=== PATIENT | female | born 1955 | race Caucasian/White ===

== ENCOUNTER → 2019-10-01 | Outpatient (REF) | payer BC ==
[2019-10-01 15:35] LABS: BASO % 0.8 % (0.0-1.0); EOS % 0.4 % (0.0-3.0); HEMATOCRIT 21.3 % (36.0-47.0); LYMPH # 0.9 10^3/uL (1.5-5.0); LYMPH % 36.6 % (24.0-44.0); MEAN CORPUSCULAR HEMOGLOBIN 35.8 pg (27.0-33.0); MEAN CORPUSCULAR HGB CONC 31.9 g/dl (32.0-36.5); MEAN CORPUSCULAR VOLUME 112.1 fl (80.0-96.0); MONO # 0.3 10^3/uL (0.0-0.8); MONO % 10.2 % (0.0-5.0); NEUTROPHILS # 1.3 10^3/uL (1.5-8.5); NEUTROPHILS % 51.6 % (36.0-66.0); PLATELET COUNT, AUTOMATED 217 10^3/uL (150-450); WHITE BLOOD COUNT 2.5 10^3/uL (4.0-10.0)
[2019-10-01 16:00] LABS: HEMOGLOBIN 6.8 g/dl (12.0-15.5)
[2019-10-01 16:04] LABS: ALBUMIN 3.6 GM/DL (3.2-5.2); ALT/SGPT 20 U/L (12-78); BILIRUBIN,TOTAL 0.7 MG/DL (0.2-1.0); BLOOD UREA NITROGEN 35 MG/DL (7-18); CALCIUM LEVEL 8.6 MG/DL (8.8-10.2); CARBON DIOXIDE LEVEL 23 MEQ/L (21-32); CHLORIDE LEVEL 104 MEQ/L (98-107); CREATININE FOR GFR 0.66 MG/DL (0.55-1.30); GLOMERULAR FILTRATION RATE > 60.0 (>45); GLUCOSE, FASTING 113 MG/DL (70-100); PHOSPHORUS LEVEL 4.2 MG/DL (2.5-4.9); POTASSIUM SERUM 4.4 MEQ/L (3.5-5.1); SODIUM LEVEL 138 MEQ/L (136-145); TOTAL PROTEIN 6.2 GM/DL (6.4-8.2); TRIGLYCERIDES LEVEL 45 MG/DL (<150)
== END ==
LOC: M LAB REF 14:31
DX: Z00.00 Encounter for general adult medical examination without abnormal findings (principal)

== ENCOUNTER → 2019-10-08 | Outpatient (REF) | payer BC ==
[2019-10-08 15:39] LABS: BASO % 0.4 % (0.0-1.0); EOS % 1.3 % (0.0-3.0); HEMATOCRIT 26.8 % (36.0-47.0); HEMOGLOBIN 8.8 g/dl (12.0-15.5); LYMPH % 40.4 % (24.0-44.0); MEAN CORPUSCULAR HEMOGLOBIN 35.5 pg (27.0-33.0); MEAN CORPUSCULAR HGB CONC 32.8 g/dl (32.0-36.5); MEAN CORPUSCULAR VOLUME 108.1 fl (80.0-96.0); MONO # 0.2 10^3/uL (0.0-0.8); MONO % 8.3 % (0.0-5.0); NEUTROPHILS # 1.2 10^3/uL (1.5-8.5); NEUTROPHILS % 49.2 % (36.0-66.0); PLATELET COUNT, AUTOMATED 200 10^3/uL (150-450); RED BLOOD COUNT 2.48 10^6/uL (4.00-5.40); WHITE BLOOD COUNT 2.4 10^3/uL (4.0-10.0)
[2019-10-08 15:45] LABS: ALBUMIN 3.7 GM/DL (3.2-5.2); ALT/SGPT 14 U/L (12-78); BILIRUBIN,TOTAL 0.9 MG/DL (0.2-1.0); BLOOD UREA NITROGEN 23 MG/DL (7-18); CALCIUM LEVEL 8.5 MG/DL (8.8-10.2); CARBON DIOXIDE LEVEL 27 MEQ/L (21-32); CHLORIDE LEVEL 106 MEQ/L (98-107); CREATININE FOR GFR 0.71 MG/DL (0.55-1.30); GLOMERULAR FILTRATION RATE > 60.0 (>45); GLUCOSE, FASTING 67 MG/DL (70-100); MAGNESIUM LEVEL 1.9 MG/DL (1.8-2.4); PHOSPHORUS LEVEL 3.7 MG/DL (2.5-4.9); POTASSIUM SERUM 3.8 MEQ/L (3.5-5.1); SODIUM LEVEL 139 MEQ/L (136-145); TOTAL PROTEIN 6.1 GM/DL (6.4-8.2); TRIGLYCERIDES LEVEL 55 MG/DL (<150)
== END ==
LOC: M SHH 15:18
DX: Z00.00 Encounter for general adult medical examination without abnormal findings (principal)

== ENCOUNTER → 2019-10-16 | Outpatient (REF) | payer MEDICARE, OTHER ==
[2019-10-16 15:17] LABS: ALBUMIN 3.6 GM/DL (3.2-5.2); ALT/SGPT 13 U/L (12-78); BILIRUBIN,TOTAL 0.6 MG/DL (0.2-1.0); BLOOD UREA NITROGEN 32 MG/DL (7-18); CALCIUM LEVEL 8.3 MG/DL (8.8-10.2); CARBON DIOXIDE LEVEL 24 MEQ/L (21-32); CHLORIDE LEVEL 108 MEQ/L (98-107); CREATININE FOR GFR 0.63 MG/DL (0.55-1.30); GLOMERULAR FILTRATION RATE > 60.0 (>45); GLUCOSE, FASTING 90 MG/DL (70-100); MAGNESIUM LEVEL 2.1 MG/DL (1.8-2.4); PHOSPHORUS LEVEL 3.5 MG/DL (2.5-4.9); POTASSIUM SERUM 4.2 MEQ/L (3.5-5.1); SODIUM LEVEL 139 MEQ/L (136-145); TOTAL PROTEIN 6.2 GM/DL (6.4-8.2); TRIGLYCERIDES LEVEL 32 MG/DL (<150)
[2019-10-16 15:26] LABS: BASO % 0.9 % (0.0-1.0); EOS % 0.9 % (0.0-3.0); HEMATOCRIT 22.9 % (36.0-47.0); HEMOGLOBIN 7.4 g/dl (12.0-15.5); LYMPH # 1.1 10^3/uL (1.5-5.0); LYMPH % 51.6 % (24.0-44.0); MEAN CORPUSCULAR HEMOGLOBIN 35.2 pg (27.0-33.0); MEAN CORPUSCULAR HGB CONC 32.3 g/dl (32.0-36.5); MONO # 0.2 10^3/uL (0.0-0.8); MONO % 8.3 % (0.0-5.0); NEUTROPHILS % 38.3 % (36.0-66.0); PLATELET COUNT, AUTOMATED 157 10^3/uL (150-450); WHITE BLOOD COUNT 2.2 10^3/uL (4.0-10.0)
[2019-10-16 16:05] LABS: NEUTROPHILS # 0.8 10^3/uL (1.5-8.5)
== END ==
LOC: M SHH 13:53
DX: K22.9 Disease of esophagus, unspecified (principal)

== ENCOUNTER → 2019-10-22 | Outpatient (REF) | payer MEDICARE, OTHER ==
[2019-10-22 14:51] LABS: BASO % 0.5 % (0.0-1.0); EOS % 0.5 % (0.0-3.0); HEMATOCRIT 22.3 % (36.0-47.0); HEMOGLOBIN 7.1 g/dl (12.0-15.5); LYMPH # 0.7 10^3/uL (1.5-5.0); LYMPH % 33.8 % (24.0-44.0); MEAN CORPUSCULAR HGB CONC 31.8 g/dl (32.0-36.5); MEAN CORPUSCULAR VOLUME 109.9 fl (80.0-96.0); MONO # 0.2 10^3/uL (0.0-0.8); NEUTROPHILS # 1.2 10^3/uL (1.5-8.5); NEUTROPHILS % 54.2 % (36.0-66.0); PLATELET COUNT, AUTOMATED 182 10^3/uL (150-450); RED BLOOD COUNT 2.03 10^6/uL (4.00-5.40); WHITE BLOOD COUNT 2.2 10^3/uL (4.0-10.0)
[2019-10-22 15:19] LABS: ALBUMIN 3.5 GM/DL (3.2-5.2); ALT/SGPT 15 U/L (12-78); BILIRUBIN,TOTAL 0.6 MG/DL (0.2-1.0); BLOOD UREA NITROGEN 23 MG/DL (7-18); CALCIUM LEVEL 8.2 MG/DL (8.8-10.2); CARBON DIOXIDE LEVEL 25 MEQ/L (21-32); CHLORIDE LEVEL 104 MEQ/L (98-107); CREATININE FOR GFR 0.62 MG/DL (0.55-1.30); GLOMERULAR FILTRATION RATE > 60.0 (>45); GLUCOSE, FASTING 76 MG/DL (70-100); MAGNESIUM LEVEL 2.2 MG/DL (1.8-2.4); PHOSPHORUS LEVEL 3.4 MG/DL (2.5-4.9); POTASSIUM SERUM 3.6 MEQ/L (3.5-5.1); SODIUM LEVEL 138 MEQ/L (136-145); TOTAL PROTEIN 6.1 GM/DL (6.4-8.2); TRIGLYCERIDES LEVEL 43 MG/DL (<150)
== END ==
LOC: M SHH 13:18
PROVIDERS: ATTEND Family Medicine
DX: E43 Unspecified severe protein-calorie malnutrition (principal); Q39.5 Congenital dilatation of esophagus; K22.0 Achalasia of cardia; Z98.84 Bariatric surgery status

== ENCOUNTER 2020-01-23 21:02 | Inpatient (IN) | payer MEDICARE, OTHER ==
[~2020-01-23] VITALS: Ht 175.3 cm; Wt 83.0 kg
[~2020-01-23 21:02] MED LIST: ALBU83IN INH; BIMA01SOL OS; BRIM0.2S13 OS; CENT1TAB PO; FURO20TA2 PO; LEVO500T3 PO; MUCI1TAB16 PO; PANT40TA3 PO; PROAAER10 INH; PROT1TAB2 PO; PROTPAK PO; SIMB1SUS OS; SYMB16INH INH; TPNINJ3 IV; VITA500C24 PO; VITMTA PO; [UNRECOGNIZED DRUG - OTHER] NEB
[2020-01-23] MEDS ORDERED: PROC20004 IM (21:14)
[2020-01-23] MEDS ORDERED: COMBIVENT RESPIMAT 100-20MCG INHALER 4GM INH ONE (21:45)
[2020-01-23 22:17] LABS: BASO % 0.6 % (0.0-1.0); EOS % 0.6 % (0.0-3.0); LYMPH # 1.5 10^3/uL (1.5-5.0); MEAN CORPUSCULAR HGB CONC 33.7 g/dl (32.0-36.5); MONO # 0.3 10^3/uL (0.0-0.8); MONO % 5.9 % (0.0-5.0); NEUTROPHILS # 3.5 10^3/uL (1.5-8.5); NEUTROPHILS % 65.3 % (36.0-66.0); PLATELET COUNT, AUTOMATED 241 10^3/uL (150-450); WHITE BLOOD COUNT 5.4 10^3/uL (4.0-10.0)
[2020-01-23 22:19] LABS: HEMOGLOBIN 6.4 g/dl (12.0-15.5); MEAN CORPUSCULAR VOLUME 118.8 fl (80.0-96.0)
[2020-01-23 22:23] LABS: ANISOCYTOSIS 2+; POLYCHROMASIA 1+
[2020-01-23 22:24] LABS: POIKILOCYTOSIS 2+
[2020-01-23 22:25] LABS: MICROCYTOSIS 1+
[2020-01-23 22:27] LABS: OVALOCYTES 1+; PLATELET ESTIMATE NORMAL (NORMAL); TEAR DROP CELLS 1+
--- NOTE | 2020-01-23 22:33 | ECGEPIP ---
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
[2020-01-23 22:40] LABS: ALBUMIN 2.7 GM/DL (3.2-5.2); ALT/SGPT 8 U/L (12-78); BILIRUBIN,DIRECT 0.2 MG/DL (0.0-0.2); BILIRUBIN,TOTAL 0.6 MG/DL (0.2-1.0); BLOOD UREA NITROGEN 24 MG/DL (7-18); CARBON DIOXIDE LEVEL 28 MEQ/L (21-32); CHLORIDE LEVEL 103 MEQ/L (98-107); CK-MB VALUE MASS < 1.0 NG/ML (<3.6); CPK CREATINE PHOSPHOKINASE 11 U/L (26-192); CREATININE FOR GFR 0.65 MG/DL (0.55-1.30); GLOMERULAR FILTRATION RATE > 60.0 (>45); GLUCOSE, FASTING 107 MG/DL (70-100); MB/CK RELATIVE INDEX 9.09 (< OR =4); NT-PRO BNP 931 PG/ML (<125); POTASSIUM SERUM 3.9 MEQ/L (3.5-5.1); SODIUM LEVEL 139 MEQ/L (136-145); TOTAL PROTEIN 6.1 GM/DL (6.4-8.2); TROPONIN I < 0.02 NG/ML (< 0.10)
[2020-01-23] MEDS ORDERED: ISOVUE-370 76% 100ML VIAL (Q9967) As Ordered ONE (22:47)
[2020-01-24] VITALS (19 sets, daily range): BP systolic 86–120; BP diastolic 47–65
--- NOTE | 2020-01-24 00:11 | REPVR ---
PROCEDURE INFORMATION: Exam: CT Angiography Chest With Contrast Exam date and time: 01/23/2020 9:38 PM Age: 64 years old Clinical indication: Shortness of breath TECHNIQUE: Imaging protocol: Computed tomographic angiography of the chest with intravenous contrast. 3D rendering: MIP and/or 3D reconstructed images were created by the technologist. Radiation optimization: All CT scans at this facility use at least one of these dose optimization techniques: automated exposure control; mA and/or kV adjustment per patient size (includes targeted exams where dose is matched to clinical indication); or iterative reconstruction. Contrast material: ISO; Contrast volume: 75 ml; Contrast route: AC; COMPARISON: CT CHEST W/ CONTRAST - OUTSIDE PRIOR 09/10/2019 12:00 AM FINDINGS: Pulmonary arteries: Main pulmonary artery is dilated. No pulmonary embolism is seen. Aorta: Unremarkable. No aortic aneurysm. No aortic dissection. Lungs: There are extensive multifocal areas of airspace consolidation throughout both lungs. Mild linear interstitial thickening in both lungs. Multiple calcified granulomata in both lungs. Pleural space: Right greater than left small pleural effusions. Heart: Mild cardiomegaly. No pericardial effusion. Mediastinum: The esophagus is diffusely dilated and predominantly fluid filled. Appearance is not significantly changed from the prior exam. Lymph nodes: Multiple calcified and noncalcified mediastinal lymph nodes, similar to the prior exam. Bones/joints: Unremarkable. No acute fracture. Soft tissues: Unremarkable. IMPRESSION: 1. Extensive bilateral pneumonia. 2. No pulmonary embolism. 3. Right greater than left small pleural effusions. 4. Diffusely dilated, predominantly fluid-filled esophagus, similar to the prior exam. Electronically signed by: Emir Villavicencio On 01/24/2020 00:11:27 AM
[2020-01-24] MEDS ORDERED: NS 1,000 ML IV SCH (01:22)
[2020-01-24] MEDS ORDERED: ACETAMINOPHEN TAB 650MG DOSE (2X325MG) PO PRN (01:30)
[2020-01-24] MEDS ORDERED: MAALOX 30 ML SUSP *UDC PO PRN (01:30)
[2020-01-24] MEDS ORDERED: BRIM0.2S13 OD (01:30)
[2020-01-24] MEDS ORDERED: BLAC1CAP2 PO (01:30)
[2020-01-24] MEDS ORDERED: IPRATROPIUM 0.5MG/ALBUTEROL 2.5MG INH SOL UD 3ML (DUONEB)(J7620) INH PRN (01:30)
[2020-01-24] MEDS ORDERED: C 50TAB PO (01:30)
[2020-01-24] MEDS ORDERED: MOM 30ML SUSPENSION UDC PO PRN (01:30)
[2020-01-24] MEDS ORDERED: VANCOMYCIN HCL 1,000 MG, VIAL MATE ADAPTER 1 EACH in D5W 250 ML IV ONE (01:45)
--- NOTE | 2020-01-24 02:12 | HPEPDOC ---
General Date of Admission Date of Service: Jan 24, 2020 Chief Complaint The patient is a 64-year-old female admitted with a reason for visit of SOB. Source: Patient Exam Limitations: No limitations Timing/Duration: Day(s) (5) Severity: Moderate Associated Symptoms: Cough, Malaise, Shortness of breath, Weakness History of Present Illness 64-year-old female with past medical history of recently diagnosed myelodysplastic syndrome presents with worsening shortness of breath and fatigue over the past 5 days. Patient reports that when symptoms initially started, she was experiencing fatigue after some physical exertion. She also states that she had associated upper respiratory like symptoms. She says that she initially had a productive cough with yellow sputum and increased sinus pressure and pain in her ears. She went to see her doctor for her regular scheduled Procrit shots for the myelodysplastic syndrome. At that time, the shot was not given and patient was prescribed Levaquin to be taken by by mouth for 10 days. However, she continued to feel fatigued and her symptoms of dyspnea on exertion worsened. Given her worsening shortness of breath and generalized malaise, patient decided to come to the ER for further evaluation. Patient reports that her cough has actually improved and she is no longer producing much sputum. She denies any associated fevers, chills, abdominal pain, chest pain. She has some swelling in her lower extremities which she says is chronic. She has been using some nebulizers (Atrovent) at home for her shortness of breath which was minimally helpful. She denies any recent travel history, sick contacts. She states that her has been doing most of the shopping and usually disimpact EDGES and grocery bags when he comes home. Her is not sick at this time. 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 She is independent in all her ADLs and IADLs. She was at her . She is a lifelong nonsmoker, nondrinker, nondrug user. Upon ER evaluation, patient was noted to be hypoxic to 85% and required approximately 4 L via nasal cannula to maintain saturation greater than 92. She was also found to be anemic from her baseline with extensive bilateral pneumonia noted on CT chest. Patient to be admitted for symptomatic anemia, suspected bilateral pneumonia, rule out COVID. Home Medications Scheduled Ascorbic Acid (Vitamin C) 500 Mg Tablet, 500 MG PO DAILY, (Reported) Bimatoprost (Lumigan) 0.01% 2.5ML Drops, 1 DROP OS QHS, (Reported) Brimonidine Tartrate (Brimonidine Tartrate) 0.2% 5ML Drops, 1 DROP OD BID, (Reported) Brinzolamide/Brimonidine Tart (Simbrinza 1%-0.2% Eye Drops) 8 Ml Drops.susp, 1 DROP OS BID, (Reported) Elderberry Fruit and Flower (Black Elderberry 575 mg Cap) 1 Each Capsule, 2 CAP PO DAILY, (Reported) Epoetin Steve (Procrit) 20,000 Unit/1 Ml Vial, 20,000 UNIT IM QWEEK, (Reported) TUESDAY MORNING Multivitamins (Thera M Plus Tablet) 1 Each Tablet, 1 TAB PO DAILY, (Reported) Scheduled PRN Albuterol Sulf (Albuterol Sulfate) 2.5 Mg/3 Ml Vial.neb, 2.5 MG INH Q4H PRN for SHORTNESS OF BREATH, (Reported) Albuterol Sulfate (Proair Hfa) 8.5 Gm Hfa.aer.ad, 2 PUFF INH Q4H PRN for SHORTNESS OF BREATH, (Reported) Furosemide (Furosemide) 20 Mg Tablet, 20 MG PO DAILY PRN for EDEMA, (Reported) Allergies Coded Allergies: Penicillins (Verified Allergy, Intermediate, HIVES, 11/07/19) Sulfa (Sulfonamide Antibiotics) (Verified Allergy, Intermediate, HIVES, 11/07/19) Past Medical History Medical History Myelodysplastic syndrome, chronic lower extremity edema, glaucoma and cataracts, rheumatic fever as child Surgical History Cataract surgery, glaucoma surgery Family History Significant Family History: Cancer, Heart disease Mother of colon cancer Father had CHF, hypertension Social History * Smoker: Denies Alcohol: Denies Drugs: denies Recent Travel/Sick Contacts: Denies: Recent travel, Recent sick contacts Pets in the home: Dog(s) Psychosocial History: No pertinent psych hx Lives with her and is a 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 Independent in all her ADLs and IADLs. A-FIB/CHADSVASC A-FIB History Current/History of A-Fib/PAF?: No Review of Systems Constitutional: Reports: Malaise, Weakness, Fatigue; Denies: Chills, Fever, Night Sweats Eyes: Denies: Pain, Vision change ENT: Reports: Ear Pain, Sinus Congestion; Denies: Head Aches, Dysphagia, Sore Throat Skin: Denies: Rash, Lesions, Jaundice, Bruising Pulmonary: Reports: Dyspnea, Cough (had productive yellow sputum); Denies: Pleuritic Chest Pain Cardiovascular: Reports: Edema, Lt Headedness; Denies: Chest Pain, Palpitations, Orthopnea Gastrointestinal: Denies: Nausea, Vomiting, Abdominal Pain, Diarrhea, Constipation, Melena Genitourinary: Denies: Dysuria, Frequency Hematologic: Denies: Bruising, Bleeding Excessively Musculoskeletal: Denies: Neck Pain, Back Pain, Joint Pain, Muscle Pain Neurological: Denies: Weakness, Numbness, Change in speech, Confusion, Seizures Psych: Reports: Mood Normal Physical Examination General Exam: Positive: Alert, Cooperative, No Acute Distress, Other (pleasant white female, appears to be stated age. Speaking in full sentences and appears to be comfortable on 4 L by nasal cannula.) Eye Exam: Positive: PERRLA, Conjunctiva & lids normal, EOMI; Negative: Sclera icteric ENT Exam: Positive: Atraumatic, Mucous membr. moist/pink; Negative: Pharyngeal Edema Neck Exam: Positive: Supple, +2 carotid pulse wo bruit; Negative: JVD, thyromegaly, Lymphadenopathy Chest Exam: Positive: Clear to auscultation, Other (crackles noted in the upper right lung valverde as well as a lower left lung valverde. No audible wheezing) Heart Exam: Positive: Rate Normal, Tachycardic, Regular Rhythm, Normal S1, Norm al S2, Murmurs (systolic murmur appreciated 4/6) Abdomen Exam: Positive: Normal bowel sounds, Soft; Negative: Tenderness, Hepatospenomegaly, Mass Extremity Exam: Positive: Edema (2+ pitting edema in bilateral shins); Negative: Clubbing, Cyanosis Skin Exam: Positive: Nl turgor and temperature; Negative: Rash, Breakdown Neuro Exam: Positive: Normal Gait, Normal Speech, Strength at 5/5 X4 ext, Normal Tone, Sensation Intact, Cranial Nerves 3-12 NL Psych Exam: Positive: Mental status NL, Mood NL Vital Signs Vital Signs Date Time Temp Pulse Resp B/P (MAP) Pulse Ox O2 Delivery O2 Flow Rate FiO2 01/24/20 01:06 83 20 106/52 (70) 97 Nasal Cannula 3.0 01/23/20 21:02 98.2 Laboratory Data Labs 24H Laboratory Tests 2 01/23/20 21:58: Immature Granulocyte % (Auto) 0.6, Neutrophils (%) (Auto) 65.3, Lymphocytes (%) (Auto) 27.0, Monocytes (%) (Auto) 5.9H, Eosinophils (%) (Auto) 0.6, Basophils (%) (Auto) 0.6, Neutrophils # (Auto) 3.5, Lymphocytes # (Auto) 1.5, Monocytes # (Auto) 0.3, Eosinophils # (Auto) 0.0, Basophils # (Auto) 0.0, Nucleated Red Blood Cells % (auto) 0.0, Platelet Estimate NORMAL, Polychromasia 1+, Poikilocytosis 2+, Anisocytosis 2+, Microcytosis 1+, Macrocytosis 3+, Tear Drop Cells 1+, Ovalocytes 1+, Anion Gap 8, Glomerular Filtration Rate > 60.0, Lactic Acid Level 1.3, Calcium Level 9.0, Total Bilirubin 0.6, Direct Bilirubin 0.2, Aspartate Amino Transf (AST/SGOT) 6L, Alanine Aminotransferase (ALT/SGPT) 8L, Alkaline Phosphatase 58, Total Creatine Kinase 11L, Creatine Kinase MB < 1.0, Creatine Kinase MB Relative Index 9.09H, Troponin I < 0.02, IM-Cgm-V-Type Natriuretic Peptide 931H, Total Protein 6.1L, Albumin 2.7L, Albumin/Globulin Ratio 0.79L CBC/BMP Laboratory Tests 01/23/20 21:58 Microbiology Microbiology 01/24/20 Coronavirus COVID-19 PCR (ABEBE), Received Pending 01/23/20 Blood Culture, Received Pending 01/23/20 Respiratory Virus Panel (PCR) (ABEBE) - Final, Complete 01/23/20 Blood Culture, Received Pending RAD Interpretation STUDY: CT Chest Rad Actions: Report Reviewed, Films Reviewed, Discussed with the pt RAD Interpretation: Other Result Comments: (extensive bilateral pneumonia as noted. Bilateral pleural effusions also seen.) Assessment/Plan 64-year-old female with mild dysplastic syndrome presents with shortness of breath likely due to symptomatic anemia as well as extensive bilateral pneumonias. Patient's hemoglobin is lower than baseline after her missed Procrit shot and will require transfusion at this time. Acute hypoxic respiratory failure likely due to pneumonia that will require IV antibiotics and supplementa l oxygen. Given her presentation however, patient was COVID tested in the ER and will require isolation at this time. Patient to be admitted to PCU for further evaluation and treatment Plan / VTE VTE Prophylaxis Ordered?: Yes VTE Exclusion Pharmacological: Other (symptomatic anemia requiring transfusion) Plan Plan 1. Shortness of breath on exertion, likely due to symptomatic anemia from mild dysplastic syndrome Patient has known mild dysplastic syndrome that requires Procrit shots weekly. She has also received blood transfusions in the past. She missed her last dose due to a presumed respiratory infection and was started on by mouth Levaquin. Hemoglobin on ER evaluation noted to be 6.4 with 1 unit PRBCs to be given. Patient reports that her symptoms are consistent with her symptomatic anemia in the past. Patient denies any melena or dark stools. - Transfuse 1 unit PRBCs now - Maintain active type and screen - Transfuse for hemoglobin less than 7 - Follow up stool occult - Hold Procrit shots while inpatient and resume as outpatient 2. Acute hypoxic respiratory failure 2/2 Extensive bilateral pneumonia, r/o COVID Patient is currently requiring 4 L of oxygen to maintain saturation greater than 92%. Although she has no elevated white count, she does have myelodysplastic syndrome which may prevent elevated white counts. CT scan does reveal extensive infiltrates bilaterally. Symptoms have been improving with by mouth Levaquin and therefore will continue IV Levaquin at this time. Will also order for vancomycin. COVID testing ordered by ER and pending results. Respiratory panel for influenza, rhinovirus negative. - Follow up sputum culture - Continue with IV Levaquin 750 mg every 24 - Start vancomycin, can be discontinued if MRSA screen is negative - Follow pro-calcitonin level - DuoNeb's and albuterol when necessary - Continue with supplement oxygen to maintain saturation greater than 92% - Incentive spirometer - Droplet precautions for Covid unless aerosolized procedure necessary - Follow up Covid testing results - Patient will require isolation from other patients - The patient condition worsens, will need stat pulmonary and ID consults 3. Glaucoma Chronic issue. - Continue with her home eyedrops of brimonidine, brinzolamide, latanoprost 4. Lower extremity edema, hx of rheumatic fever Pt reports having rheumatic fever as child. She has also had worsening lower extremity edema although denies orthopnea. Physical exam does reveal systolic murmur that is pronounced. Patient has never had an echocardiogram done before. Given her shortness of breath, lower extremity edema we'll obtain echo for now. - Follow up echocardiogram Diet: Continue Current Activity: Continue Current, Encourage Ambulation Medications: Change to IV, Start Antibiotics Diagnostics: Check Labs Anticipated Discharge: Home HIMANSHU CUEVAS MD Jan 24, 2020 02:12
[2020-01-24] MEDS ORDERED: FUROSEMIDE 20 MG TAB PO PRN (02:15)
[2020-01-24] MEDS ORDERED: VANCOMYCIN HCL 500 MG in D5W MINI-BAG PLUS 100 ML IV ONE (04:15)
[2020-01-24] MEDS: LevoFLOXacin IV 750 MG in IV 1 EA IV SCH (06:26)
[2020-01-24] MEDS ORDERED: SLF 3 ML SYR IV PRN (07:00)
[2020-01-24] MEDS: BRINZOLAMIDE 1 % OPHTH SUSP (AZOPT) 10ML OU SCH ×3 (08:04→20:17)
[2020-01-24] MEDS: BRIMONIDINE 0.15% OPHTH SOLN 5 ML OU SCH ×3 (08:05→20:16)
[2020-01-24] MEDS: MULTIVITAMINS/MINERALS THERAP 1 TAB PO SCH (08:05)
[2020-01-24] MEDS: ASCORBIC ACID 500 MG TAB PO SCH (08:05)
[2020-01-24 08:06] LABS: BASO % 0.5 % (0.0-1.0); EOS % 0.7 % (0.0-3.0); LYMPH # 1.2 10^3/uL (1.5-5.0); LYMPH % 27.6 % (24.0-44.0); MEAN CORPUSCULAR HEMOGLOBIN 37.4 pg (27.0-33.0); MEAN CORPUSCULAR VOLUME 113.2 fl (80.0-96.0); MONO # 0.3 10^3/uL (0.0-0.8); MONO % 7.7 % (0.0-5.0); NEUTROPHILS # 2.6 10^3/uL (1.5-8.5); PLATELET COUNT, AUTOMATED 196 10^3/uL (150-450); RED BLOOD COUNT 1.74 10^6/uL (4.00-5.40); WHITE BLOOD COUNT 4.2 10^3/uL (4.0-10.0)
[2020-01-24] MEDS: DOCUSATE SODIUM 100 MG CAP PO SCH ×2 (08:06→20:16)
[2020-01-24 08:23] LABS: HEMATOCRIT 19.7 % (36.0-47.0); HEMOGLOBIN 6.5 g/dl (12.0-15.5)
[2020-01-24 08:45] LABS: ANISOCYTOSIS 3+
[2020-01-24 08:46] LABS: HYPOCHROMASIA 1+; OVALOCYTES 1+; PLATELET ESTIMATE NORMAL (NORMAL); POIKILOCYTOSIS 1+
[2020-01-24 08:56] LABS: ALBUMIN 2.5 GM/DL (3.2-5.2); ALT/SGPT 7 U/L (12-78); BILIRUBIN,TOTAL 0.7 MG/DL (0.2-1.0); BLOOD UREA NITROGEN 19 MG/DL (7-18); CALCIUM LEVEL 8.6 MG/DL (8.8-10.2); CARBON DIOXIDE LEVEL 29 MEQ/L (21-32); CHLORIDE LEVEL 102 MEQ/L (98-107); CREATININE FOR GFR 0.56 MG/DL (0.55-1.30); GLOMERULAR FILTRATION RATE > 60.0 (>45); GLUCOSE, FASTING 114 MG/DL (70-100); POTASSIUM SERUM 3.9 MEQ/L (3.5-5.1); SODIUM LEVEL 137 MEQ/L (136-145); TOTAL PROTEIN 5.7 GM/DL (6.4-8.2); TROPONIN I < 0.02 NG/ML (< 0.10)
[2020-01-24] MEDS ORDERED: DARBEPOETIN 100 MCG/0.5 ML *NON-DIALYSIS* SYRINGE (J0881) SC SCH (09:00)
[2020-01-24] MEDS ORDERED: SODIUM CHLORIDE 0.9% 1000ML IV STA (09:17)
[2020-01-24 10:21] LABS: MEAN CORPUSCULAR HEMOGLOBIN 38.3 pg (27.0-33.0); MEAN CORPUSCULAR HGB CONC 33.7 g/dl (32.0-36.5); MEAN CORPUSCULAR VOLUME 113.7 fl (80.0-96.0); PLATELET COUNT, AUTOMATED 218 10^3/uL (150-450); RED BLOOD COUNT 1.83 10^6/uL (4.00-5.40); WHITE BLOOD COUNT 4.5 10^3/uL (4.0-10.0)
[2020-01-24 10:38] LABS: HEMATOCRIT 20.8 % (36.0-47.0)
[2020-01-24 10:52] LABS: BLOOD UREA NITROGEN 21 MG/DL (7-18); CALCIUM LEVEL 8.1 MG/DL (8.8-10.2); CARBON DIOXIDE LEVEL 28 MEQ/L (21-32); CHLORIDE LEVEL 105 MEQ/L (98-107); CREATININE FOR GFR 0.61 MG/DL (0.55-1.30); GLOMERULAR FILTRATION RATE > 60.0 (>45); GLUCOSE, FASTING 112 MG/DL (70-100); POTASSIUM SERUM 4.1 MEQ/L (3.5-5.1); SODIUM LEVEL 138 MEQ/L (136-145)
[2020-01-24 11:34] LABS: LDH LACTATE DEHYDROGENASE 163 U/L (84-246)
[2020-01-24 11:58] LABS: VITAMIN B12 LEVEL 1079 PG/ML
[2020-01-24 11:59] LABS: FOLATE 15.8 NG/ML
[2020-01-24] MEDS: VANCOMYCIN HCL 1,000 MG, VIAL MATE ADAPTER 1 EACH in D5W 250 ML IV SCH ×2 (12:18→20:30)
[2020-01-24] MEDS: COMBIVENT RESPIMAT 100-20MCG INHALER 4GM INH SCH ×2 (13:23→20:22)
[2020-01-24] MEDS ORDERED: NS 1,000 ML IV ONE (14:00)
[2020-01-24] MEDS: SLF 3 ML SYR IV SCH ×2 (14:22→20:36)
[2020-01-24] MEDS: ALBUTEROL 90 MCG/ACT 8GM HFA INHALER INH PRN (15:05)
[2020-01-24] MEDS: NS 1,000 ML IV SCH (16:28)
[2020-01-24 18:14] LABS: HEMATOCRIT 20.1 % (36.0-47.0); HEMOGLOBIN 6.8 g/dl (12.0-15.5)
--- NOTE | 2020-01-24 18:50 | ECHO ---
DATE OF PROCEDURE: 01/24/2020 REFERRING PHYSICIAN: Dereck Mariano MD INDICATION: Edema. HEIGHT: 175 cm WEIGHT: 78 kg DIMENSIONS: IVS: 1.0 LV: 5.1 LVPW: 1.0 LA: 3.5 Aorta: 2.9 RV: 3.4 Mitral E wave velocity: 89, A wave: 83 E prime septal: 5.9 E prime lateral: 6.5 FINDINGS: The study is of rather limited technical quality. There are no subcostal views, it was apparently sitting examination; the patient was unable to lay flat due to dyspnea. Left ventricle is normal size and has hyperdynamic contractility. I estimate left ventricular ejection fraction (LVEF) 65-70%. No segmental wall motion abnormalities are appreciated. Right ventricle is normal size and systolic function as well based on limited views. Both atria appear grossly normal. Aortic valve is sclerotic. There is some restriction of mobility of the cusps, but the visualization was limited. There are also mild degenerative abnormalities of mitral valve. Mitral and tricuspid valves appear normal. No pericardial effusion is noted. Inferior vena cava was not seen. Aortic root is normal. Aortic arch and abdominal aorta were not visualized. Doppler interrogation reveals no aortic insufficiency and approximately moderate aortic stenosis. Mean gradient across the valve was 23 and peak gradient 43 mmHg. Calculated aortic valve area was 1.2 cm2. There is mild mitral insufficiency and possibly mild to moderate tricuspid insufficiency. Calculated pulmonary artery pressure is 55, plus central venous pressure, corresponding to at minimum moderately severe pulmonary hypertension. Mitral inflow pattern and tissue Doppler imaging of mitral annulus reveal grade 2 diastolic dysfunction indicative of elevated LVEDP. CONCLUSION 1. Study is of fair technical quality, it was a sitting exam with no subcostal views. 2. The patient is in sinus rhythm. 3. Normal LV size and systolic function, grade 2 diastolic dysfunction. 4. Sclerotic aortic valve with approximately moderate aortic stenosis (mean gradient 23 mmHg, calculated BOB 1.2 cm2). 5. Unable to estimate central venous pressure but at least moderately severe pulmonary hypertension. COMMENT Subacute bacterial endocarditis (SBE) prophylaxis is not recommended.
[2020-01-24] MEDS: LATANOPROST 0.005% OPHTH SOLN 2.5 ML OU SCH (20:17)
[2020-01-25] VITALS (24 sets, daily range): BP systolic 91–105; BP diastolic 50–55; O2SAT 91–97
[2020-01-25 01:04] LABS: HEMATOCRIT 24.6 % (36.0-47.0); HEMOGLOBIN 8.4 g/dl (12.0-15.5); MEAN CORPUSCULAR HEMOGLOBIN 36.7 pg (27.0-33.0); MEAN CORPUSCULAR HGB CONC 34.1 g/dl (32.0-36.5); MEAN CORPUSCULAR VOLUME 107.4 fl (80.0-96.0); PLATELET COUNT, AUTOMATED 213 10^3/uL (150-450); RED BLOOD COUNT 2.29 10^6/uL (4.00-5.40); WHITE BLOOD COUNT 4.8 10^3/uL (4.0-10.0)
[2020-01-25] MEDS: COMBIVENT RESPIMAT 100-20MCG INHALER 4GM INH SCH ×4 (02:20→19:58)
[2020-01-25] MEDS: VANCOMYCIN HCL 1,000 MG, VIAL MATE ADAPTER 1 EACH in D5W 250 ML IV SCH ×3 (04:10→21:03)
[2020-01-25] MEDS: NS 1,000 ML IV SCH (04:10)
[2020-01-25] MEDS: LevoFLOXacin IV 750 MG in IV 1 EA IV SCH (05:41)
[2020-01-25] MEDS: SLF 3 ML SYR IV SCH ×3 (05:41→21:04)
[2020-01-25 06:05] LABS: HEMATOCRIT 25.5 % (36.0-47.0); HEMOGLOBIN 8.5 g/dl (12.0-15.5); MEAN CORPUSCULAR HGB CONC 33.3 g/dl (32.0-36.5); MEAN CORPUSCULAR VOLUME 108.1 fl (80.0-96.0); PLATELET COUNT, AUTOMATED 216 10^3/uL (150-450); RED BLOOD COUNT 2.36 10^6/uL (4.00-5.40); WHITE BLOOD COUNT 4.5 10^3/uL (4.0-10.0)
[2020-01-25 06:37] LABS: ALBUMIN 2.6 GM/DL (3.2-5.2); ALT/SGPT 7 U/L (12-78); BILIRUBIN,TOTAL 0.6 MG/DL (0.2-1.0); BLOOD UREA NITROGEN 15 MG/DL (7-18); CALCIUM LEVEL 7.9 MG/DL (8.8-10.2); CARBON DIOXIDE LEVEL 27 MEQ/L (21-32); CHLORIDE LEVEL 105 MEQ/L (98-107); CREATININE FOR GFR 0.52 MG/DL (0.55-1.30); GLOMERULAR FILTRATION RATE > 60.0 (>45); GLUCOSE, FASTING 111 MG/DL (70-100); NT-PRO BNP 668 PG/ML (<125); SODIUM LEVEL 138 MEQ/L (136-145); TOTAL PROTEIN 5.8 GM/DL (6.4-8.2)
[2020-01-25] MEDS: DOCUSATE SODIUM 100 MG CAP PO SCH ×2 (08:35→21:00)
[2020-01-25] MEDS: MULTIVITAMINS/MINERALS THERAP 1 TAB PO SCH (08:35)
[2020-01-25] MEDS: ASCORBIC ACID 500 MG TAB PO SCH (08:35)
[2020-01-25] MEDS: BRINZOLAMIDE 1 % OPHTH SUSP (AZOPT) 10ML OU SCH ×3 (08:36→21:03)
[2020-01-25] MEDS: BRIMONIDINE 0.15% OPHTH SOLN 5 ML OU SCH ×3 (08:36→21:03)
--- NOTE | 2020-01-25 12:31 | IPNPDOC ---
Date Seen The patient was seen on 01/25/20. Progress Note THIS IS A PROGRESS NOTE FOR 01/24/20 SUBJECTIVE: Patient was admitted earlier this morning for bilateral pneumonia, anemia and the presence of myelodysplastic syndrome, rule out COVID 19. The patient states that baseline her blood pressure systolic is between 90-100 and diastolic is between 40-60. She had several blood pressures where her mean arterial pressure was less than 65 and she required one 500 mL bolus, 1 1000 mL bolus and was later started on continuous fluids. The patient did not correct appropriately with 2 units of PRBCs and a third unit of PRBC was ordered later in the day. Post transfusion CBC was much improved. The patient remains on 4 L of oxygen and denies any worsening shortness of breath. Aerosolized nebulizers were changed to MDI. Currently awaiting all cultures. The patient denies chest pain, nausea, vomiting, fevers or chills. OBJECTIVE: VITAL SIGNS: Please see below General Exam: Positive: Alert, Cooperative, No Acute Distress, Other (pleasant white female, appears to be stated age. Speaking in full sentences and appears to be comfortable on 4 L by nasal cannula.) Eye Exam: Positive: PERRLA, Conjunctiva & lids normal, EOMI; Negative: Sclera icteric ENT Exam: Positive: Atraumatic, Mucous membr. moist/pink; Negative: Pharyngeal Edema Neck Exam: Positive: Supple, +2 carotid pulse wo bruit; Negative: JVD, thyromegaly, Lymphadenopathy Chest Exam: Positive: Clear to auscultation, Other (crackles noted in the upper right lung valverde as well as a lower left lung valverde. No audible wheezing) Heart Exam: Positive: Rate Normal, Tachycardic, Regular Rhythm, Normal S1, Normal S2, Murmurs (systolic murmur appreciated 4/6) Abdomen Exam: Positive: Normal bowel sounds, Soft; Negative: Tenderness, Hepatospenomegaly, Mass Extremity Exam: Positive: Edema (2+ pitting edema in bilateral shins); Negative: Clubbing, Cyanosis Skin Exam: Positive: Nl turgor and temperature; Negative: Rash, Breakdown Neuro Exam: Positive: Normal Gait, Normal Speech, Strength at 5/5 X4 ext, Normal Tone, Sensation Intact, Cranial Nerves 3-12 NL Psych Exam: Positive: Mental status NL, Mood NL LABORATORY: Please see below CURRENT MEDICATIONS: Please see below IMAGING: Echo to be done ASSESSMENT: Patient is a 64 y/o F admitted for acute hypoxic respiratory failure multifactorial to bilateral pneumonia, symptomatic anemia. PLAN: 1. Acute hypoxic respiratory failure multifactorial to bilateral pneumonia, symptomatic anemia, r/o COVID 19. Please see below for individual treatment plans. 2. Bilateral pneumonia, healthcare-associated PNA. On 4 L NC, no increased SOB. MRSA neg; however, due to possible coinfection will keep vancomycin. C/w levofloxacin. Low procalcitonin, afebrile. Blood cultures, sputum culture pending. Switched to MDI for combivent ATC, albuterol PRN. Contact and droplet precautions. Acapella. 3. Presumptive COVID-19. See above under problem #2. 4. Symptomatic anemia in presence of myelodysplastic syndrome. S/p 3 units PRBC over the day 01/24/20. Improved H/H 8.5/25.[address] Stacy, heme/onc. Will continue aranesp (equivalent dose of 60K epoetin weekly). Watch neutrophils closely. If neutrophils drop <1000, start filgrastim. Can keep filgrastim until neutrophils >1500. Call Dr. Loera with further questions. and p likely due to symptomatic anemia from mild dysplastic syndrome. Daily CBC. F/u occult blood. 5. Glaucoma. Continue with her home eyedrops of brimonidine, brinzolamide, latanoprost 6. Lower extremity edema, hx of rheumatic fever. Stable. BNP 900, f/u echocardiogram. DISPOSITION: Patient currently under inpatient status. Plan is PT/OT then hopeful for discharge home when medically improved. VS, I&O, 24H, Fishbone Vital Signs/I&O Vital Signs Date Time Temp Pulse Resp B/P (MAP) Pulse Ox O2 Delivery O2 Flow Rate FiO2 01/25/20 12:00 94 Nasal Cannula 3.0 01/25/20 11:57 96.8 75 20 105/55 (72) I&O- Last 24 Hours up to 6 AM 01/25/20 06:00 Intake Total 4350 ml Output Total 400 ml Balance 3950 ml Laboratory Data 24H LABS Laboratory Tests 2 01/24/20 19:57: Vancomycin Level Trough 12.7 01/25/20 00:43: Nucleated Red Blood Cells % (auto) 0.0 01/25/20 05:40: Nucleated Red Blood Cells % (auto) 0.4H, Anion Gap 6L, Glomerular Filtration Rate > 60.0, Calcium Level 7.9L, Magnesium Level 2.0, Total Bilirubin 0.6, Aspartate Amino Transf (AST/SGOT) 8, Alanine Aminotransferase (ALT/SGPT) 7L, Alkaline Phosphatase 51, YU-Tgo-S-Type Natriuretic Peptide 668H, Total Protein 5.8L, Albumin 2.6L, Albumin/Globulin Ratio 0.81L CBC/BMP Laboratory Tests 01/24/20 17:40 01/25/20 00:43 01/25/20 05:40 Microbiology Microbiology 01/24/20 Gram Stain - Final, Resulted 01/24/20 Sputum Culture, Resulted Pending 01/24/20 Coronavirus COVID-19 PCR (ABEBE), Received Pending 01/23/20 Blood Culture - Preliminary, Resulted No growth after 24 hours . All specim... 01/23/20 Respiratory Virus Panel (PCR) (ABEBE) - Final, Complete 01/23/20 Blood Culture - Preliminary, Resulted No growth after 24 hours . All specim... Maya Garcia MD Jan 25, 2020 12:30
--- NOTE | 2020-01-25 12:53 | IPNPDOC ---
Date Seen The patient was seen on 01/25/20. Progress Note SUBJECTIVE: Improved shortness of breath, decreased to 3 L NC. Cultures, COVID 19 tests pending. IVFs stopped, H/H much improved after 3rd unit of blood. Patient denies chest pain, n/v/d, fevers or chills. OBJECTIVE: VITAL SIGNS: Please see below PHYSICAL EXAMINATION: CONSTITUTIONAL: No acute distress, resting comfortably, AAO x 3 EYES: PERRLA, EOM intact HENT, MOUTH: Normocephalic, atraumatic, moist mucous membranes, nasal cannula in place NECK: SUPPLE, no JVD, no lymphadenopathy, no carotid bruit CV: Regular rate and rhythm, S1S2 normal, no murmurs/rubs/gallops RESPIRATORY: Decreased breath sounds bilaterally, crackles in lung bases, scattered rhonchi. GI: BS positive in 4 quadrants, soft, nontender, nondistended, no rebound or guarding, no organomegaly : Deferred MUSCULOSKELETAL: Normal ROM. No cyanosis, clubbing, swelling, joint deformity, extremity edema INTEGUMENTARY: Intact, no rashes, no lesions, no erythema NEUROLOGIC: Cranial Nerves II-XII are intact, no focal deficits PSYCHIATRIC: Mood and affect are normal LABORATORY: Please see below MICROBIOLOGY: Blood cultures x 2 sets NG at 24 hours Sputum gram stain: FEW WBCS MODERATE GRAM NEGATIVE RODS MODERATE GRAM POSITIVE COCCI IN PAIRS, CHAINS AND CLUSTERS FEW YEAST LIKE ORGANISM Sputum culture: pending COVID 19 PCR: pending CURRENT MEDICATIONS: Please see below IMAGING: Echocardiogram: 1. Study is of fair technical quality, it was a sitting exam with no subcostal views. 2. The patient is in sinus rhythm. 3. Normal LV size and systolic function, grade 2 diastolic dysfunction. 4. Sclerotic aortic valve with approximately moderate aortic stenosis (mean gradient 23 mmHg, calculated BOB 1.2 cm2). 5. Unable to estimate central venous pressure but at least moderately severe pulmonary hypertension. ASSESSMENT: Patient is a 64 y/o F admitted for acute hypoxic respiratory failure multifactorial to bilateral pneumonia, symptomatic anemia. PLAN: 1. Acute hypoxic respiratory failure multifactorial to bilateral pneumonia, symptomatic anemia, r/o COVID 19. Please see below for individual treatment plans. 2. Bilateral pneumonia, healthcare-associated PNA. Now on 3 L NC, no increased SOB. Cultures above pending, blood cultures NG at 24 hours. C/w levofloxacin, vancomycin. Low procalcitonin, WBC wnl, afebrile. C/w MDI for combivent ATC, albuterol PRN. Contact and droplet precautions. Acapella. 3. Presumptive COVID-19. See above under problem #2. 4. Symptomatic anemia in presence of myelodysplastic syndrome. S/p 3 units PRBC over the day 01/24/20. Improved H/H 8.5/25.5. Plan in place from heme/onc going forward if neutrophils drop, see note from 01/24/20. Daily CBC. F/u occult blood. 5. Diastolic CHF. LVEF 65-70%, echo above. BNP improved despite IVFs yesterday. Monitor for signs of fluid overload. 6. Glaucoma. Continue with her home eyedrops of brimonidine, brinzolamide, latanoprost 7. Lower extremity edema, hx of rheumatic fever. Stable. BNP 900, Echo above. DISPOSITION: Patient currently under inpatient status. Plan is PT/OT then hopeful for discharge home when medically improved. VS, I&O, 24H, Fishbone Vital Signs/I&O Vital Signs Date Time Temp Pulse Resp B/P (MAP) Pulse Ox O2 Delivery O2 Flow Rate FiO2 01/25/20 12:00 94 Nasal Cannula 3.0 01/25/20 11:57 96.8 75 20 105/55 (72) I&O- Last 24 Hours up to 6 AM 01/25/20 06:00 Intake Total 4350 ml Output Total 400 ml Balance 3950 ml Laboratory Data 24H LABS Laboratory Tests 2 01/24/20 19:57: Vancomycin Level Trough 12.7 01/25/20 00:43: Nucleated Red Blood Cells % (auto) 0.0 01/25/20 05:40: Nucleated Red Blood Cells % (auto) 0.4H, Anion Gap 6L, Glomerular Filtration Rate > 60.0, Calcium Level 7.9L, Magnesium Level 2.0, Total Bilirubin 0.6, Aspartate Amino Transf (AST/SGOT) 8, Alanine Aminotransferase (ALT/SGPT) 7L, Alkaline Phosphatase 51, ZE-Oss-N-Type Natriuretic Peptide 668H, Total Protein 5.8L, Albumin 2.6L, Albumin/Globulin Ratio 0.81L CBC/BMP Laboratory Tests 01/24/20 17:40 01/25/20 00:43 01/25/20 05:40 Microbiology Microbiology 01/24/20 Gram Stain - Final, Resulted 01/24/20 Sputum Culture, Resulted Pending 01/24/20 Coronavirus COVID-19 PCR (ABEBE), Received Pending 01/23/20 Blood Culture - Preliminary, Resulted No growth after 24 hours . All specim... 01/23/20 Respiratory Virus Panel (PCR) (ABEBE) - Final, Complete 01/23/20 Blood Culture - Preliminary, Resulted No growth after 24 hours . All specim... Current Medications Current Medications Medications (Trade) Dose Ordered Sig/Jaelyn Route PRN Reason Start Time Stop Time Status Last Admin Dose Admin Acetaminophen (Tylenol Tab) 650 mg Q4H PRN PO PAIN OR FEVER 01/24/20 01:30 Al Hydrox/Mg Hydrox/Simethicone (Mylanta) 30 ml DAILY PRN PO DYSPEPSIA 01/24/20 01:30 Albuterol Sulfate (Proventil, Ventolin Hfa) 2 puff Q4H PRN INH WHEEZING 01/24/20 01:30 01/24/20 15:05 Albuterol/ Ipratropium (Combivent Respimat 100-20mcg) 1 puff RQ6H INH 01/24/20 14:00 01/25/20 12:08 Albuterol/ Ipratropium (Duoneb (Ipr 0.5mg/Alb 2.5mg)) 3 ml Q2H PRN INH WHEEZING 01/24/20 01:30 01/24/20 09:17 DC Ascorbic Acid (Vitamin C) 500 mg DAILY PO 01/24/20 09:00 01/25/20 08:35 Brimonidine Tartrate (Alphagan P 0.15%) 1 drop TID OU 01/24/20 09:00 01/25/20 08:36 Brinzolamide (Azopt) 1 drop TID OU 01/24/20 09:00 01/25/20 08:36 Darbepoetin Steve (Aranesp) 100 mcg Th@09 SC 01/24/20 09:00 01/24/20 12:18 Docusate Sodium (Colace) 100 mg BID PO 01/24/20 09:00 Furosemide (Lasix) 20 mg DAILY PRN PO EDEMA 01/24/20 02:15 Home Med (Med Rec Complete!) ASDIRECTED XX 01/24/20 01:45 01/24/20 01:32 DC Latanoprost (Xalatan 0.005% Op Soln) 1 drop QHS OU 01/24/20 21:00 01/24/20 20:17 Levofloxacin 750 mg/IV Miscellaneous Supplies 150 ml @ 100 mls/hr Q24H IV 01/24/20 06:00 01/25/20 05:41 Magnesium Hydroxide (Milk Of Magnesia) 30 ml DAILY PRN PO CONSTIPATION 01/24/20 01:30 Multivitamins (Theragram-M) 1 tab DAILY PO 01/24/20 09:00 01/25/20 08:35 Sodium Chloride 1,000 ml @ 15 mls/hr Q24H IV 01/24/20 01:22 01/24/20 09:20 DC 01/24/20 01:45 Sodium Chloride 1,000 ml @ 80 mls/hr [id number] IV 01/24/20 14:00 01/25/20 07:26 DC 01/25/20 04:10 Sodium Chloride (Nacl 0.9%) 500 ml BOLUS STAT IV 01/24/20 09:17 01/24/20 09:20 DC 01/24/20 09:30 Sodium Chloride (Saline Lock Flush) 2 ml ASDIRECTED PRN IV SEE LABEL COMMENTS 01/24/20 07:00 Sodium Chloride (Saline Lock Flush) 2 ml SLF IV 01/24/20 14:00 01/25/20 11:47 Vancomycin HCl 1000 mg/IV Miscellaneous Supplies 1 each/ Dextrose 270 ml @ 270 mls/hr Q8H IV 01/24/20 13:00 01/25/20 04:10 Allergies Coded Allergies: Penicillins (Verified Allergy, Intermediate, HIVES, 11/07/19) Sulfa (Sulfonamide Antibiotics) (Verified Allergy, Intermediate, HIVES, 11/07/19) Maya Garcia MD Jan 25, 2020 12:53
[2020-01-25] MEDS: LATANOPROST 0.005% OPHTH SOLN 2.5 ML OU SCH (21:03)
[2020-01-25] MEDS: ALBUTEROL 90 MCG/ACT 8GM HFA INHALER INH PRN (22:38)
[2020-01-26] VITALS (31 sets, daily range): BP systolic 99–102; BP diastolic 54–61; O2SAT 91–98
[2020-01-26] MEDS: COMBIVENT RESPIMAT 100-20MCG INHALER 4GM INH SCH ×4 (01:52→20:01)
[2020-01-26] MEDS: VANCOMYCIN HCL 1,000 MG, VIAL MATE ADAPTER 1 EACH in D5W 250 ML IV SCH (04:38)
[2020-01-26 05:26] LABS: HEMATOCRIT 22.3 % (36.0-47.0); HEMOGLOBIN 7.4 g/dl (12.0-15.5); MEAN CORPUSCULAR HEMOGLOBIN 36.3 pg (27.0-33.0); MEAN CORPUSCULAR HGB CONC 33.2 g/dl (32.0-36.5); MEAN CORPUSCULAR VOLUME 109.3 fl (80.0-96.0); PLATELET COUNT, AUTOMATED 154 10^3/uL (150-450); RED BLOOD COUNT 2.04 10^6/uL (4.00-5.40); WHITE BLOOD COUNT 3.1 10^3/uL (4.0-10.0)
[2020-01-26 05:45] LABS: BLOOD UREA NITROGEN 15 MG/DL (7-18); CALCIUM LEVEL 8.1 MG/DL (8.8-10.2); CARBON DIOXIDE LEVEL 28 MEQ/L (21-32); CHLORIDE LEVEL 107 MEQ/L (98-107); CREATININE FOR GFR 0.46 MG/DL (0.55-1.30); GLOMERULAR FILTRATION RATE > 60.0 (>45); GLUCOSE, FASTING 107 MG/DL (70-100); POTASSIUM SERUM 3.8 MEQ/L (3.5-5.1); SODIUM LEVEL 138 MEQ/L (136-145)
[2020-01-26 05:46] LABS: ALBUMIN 2.2 GM/DL (3.2-5.2); ALT/SGPT < 6 U/L (12-78); BILIRUBIN,TOTAL 0.5 MG/DL (0.2-1.0); TOTAL PROTEIN 5.6 GM/DL (6.4-8.2)
[2020-01-26] MEDS: SLF 3 ML SYR IV SCH ×3 (06:03→20:49)
[2020-01-26] MEDS: LevoFLOXacin IV 750 MG in IV 1 EA IV SCH (06:03)
[2020-01-26] MEDS: MULTIVITAMINS/MINERALS THERAP 1 TAB PO SCH (07:51)
[2020-01-26] MEDS: ASCORBIC ACID 500 MG TAB PO SCH (07:51)
[2020-01-26] MEDS: DOCUSATE SODIUM 100 MG CAP PO SCH ×2 (07:51→20:49)
[2020-01-26] MEDS: BRINZOLAMIDE 1 % OPHTH SUSP (AZOPT) 10ML OU SCH ×3 (07:51→20:49)
[2020-01-26] MEDS: BRIMONIDINE 0.15% OPHTH SOLN 5 ML OU SCH ×3 (07:51→20:49)
[2020-01-26 07:53] LABS: EOS # 0.1 10^3/uL (0.0-0.5); LYMPH # 1.2 10^3/uL (1.5-5.0); LYMPH % 39.3 % (24.0-44.0); MONO # 0.3 10^3/uL (0.0-0.8); MONO % 8.7 % (0.0-5.0); NEUTROPHILS # 1.4 10^3/uL (1.5-8.5); NEUTROPHILS % 47.3 % (36.0-66.0)
[2020-01-26] MEDS: FUROSEMIDE 20 MG TAB PO SCH (12:45)
--- NOTE | 2020-01-26 15:36 | IPNPDOC ---
Date Seen The patient was seen on 01/26/20. Progress Note SUBJECTIVE: Further improved, currently on 2 L NC. Sputum culture and COVID 19 tests pending. Given 40 mg IV lasix due to crackles, increased LE edema. H/H much slightly decreased to 7.4/22.3.Patient denies chest pain, n/v/d, fevers or chills. OBJECTIVE: VITAL SIGNS: Please see below PHYSICAL EXAMINATION: CONSTITUTIONAL: No acute distress, resting comfortably, AAO x 3 EYES: PERRLA, EOM intact HENT, MOUTH: Normocephalic, atraumatic, moist mucous membranes, nasal cannula in place NECK: SUPPLE, no JVD, no lymphadenopathy, no carotid bruit CV: Regular rate and rhythm, S1S2 normal, no murmurs/rubs/gallops RESPIRATORY: Decreased breath sounds bilaterally, crackles in lung bases. No rhonchi GI: BS positive in 4 quadrants, soft, nontender, nondistended, no rebound or guarding, no organomegaly : Deferred MUSCULOSKELETAL: Normal ROM. No cyanosis, clubbing, swelling, joint deformity, +1 bilateral lower ext edema INTEGUMENTARY: Intact, no rashes, no lesions, no erythema NEUROLOGIC: Cranial Nerves II-XII are intact, no focal deficits PSYCHIATRIC: Mood and affect are normal LABORATORY: Please see below MICROBIOLOGY: Blood cultures x 2 sets NG at 24 hours Sputum gram stain: FEW WBCS MODERATE GRAM NEGATIVE RODS MODERATE GRAM POSITIVE COCCI IN PAIRS, CHAINS AND CLUSTERS FEW YEAST LIKE ORGANISM Sputum culture: pending COVID 19 PCR: pending CURRENT MEDICATIONS: Please see below IMAGING: No new imaging. ASSESSMENT: Patient is a 64 y/o F admitted for acute hypoxic respiratory failure multifactorial to bilateral pneumonia, symptomatic anemia. PLAN: 1. Acute hypoxic respiratory failure multifactorial to bilateral pneumonia, symptomatic anemia, r/o COVID 19. Please see below for individual treatment plans. 2. Bilateral pneumonia, healthcare-associated PNA. Now on 2 L NC, cultures above pending, blood cultures NG at 24 hours. C/w levofloxacin, vancomycin. LC/w MDI for combivent ATC, albuterol PRN. Contact and droplet precautions. Acapella. 3. Presumptive COVID-19. See above under problem #2. 4. Symptomatic anemia in presence of myelodysplastic syndrome. H/H lower today, monitor closely. Goal is >7. Daily CBC. 5. Diastolic CHF. LVEF 65-70%, echo above. crackles, LE edema slightly worse. G iven 20 mg lasix daily. BNP improving Monitor for signs of fluid overload. 6. Glaucoma. Continue with her home eyedrops of brimonidine, brinzolamide, latanoprost 7. Lower extremity edema, hx of rheumatic fever. Stable. BNP 900, Echo above. Lasix. DISPOSITION: Patient currently under inpatient status. Plan is PT/OT then hopeful for discharge home when medically improved. VS, I&O, 24H, Fishbone Vital Signs/I&O Vital Signs Date Time Temp Pulse Resp B/P (MAP) Pulse Ox O2 Delivery O2 Flow Rate FiO2 01/26/20 12:00 96 Nasal Cannula 2.0 01/26/20 11:58 97.6 69 18 100/61 (74) I&O- Last 24 Hours up to 6 AM 01/26/20 06:00 Intake Total 980 ml Output Total 550 ml Balance 430 ml Laboratory Data 24H LABS Laboratory Tests 2 01/26/20 04:45: Immature Granulocyte % (Auto) 0.7, Neutrophils (%) (Auto) 47.3, Lymphocytes (%) (Auto) 39.3, Monocytes (%) (Auto) 8.7H, Eosinophils (%) (Auto) 3.0, Basophils (%) (Auto) 1.0, Immature Granulocyte # (Auto) 0.0, Neutrophils # (Auto) 1.4L, Lymphocytes # (Auto) 1.2L, Monocytes # (Auto) 0.3, Eosinophils # (Auto) 0.1, Basophils # (Auto) 0.0, Nucleated Red Blood Cells % (auto) 0.0, Platelet Estimate , Anion Gap 3L, Glomerular Filtration Rate > 60.0, Calcium Level 8.1L, Total Bilirubin 0.5, Aspartate Amino Transf (AST/SGOT) 5L, Alanine Aminotransferase (ALT/SGPT) < 6L, Alkaline Phosphatase 42L, Total Protein 5.6L, Albumin 2.2L, Albumin/Globulin Ratio 0.65L 01/26/20 12:10: Vancomycin Level Trough 23.9H CBC/BMP Laboratory Tests 01/26/20 04:45 Microbiology Microbiology 01/24/20 Gram Stain - Final, Resulted 01/24/20 Sputum Culture - Preliminary, Resulted Yeast Like Organism 01/24/20 Coronavirus COVID-19 PCR (ABEBE), Received Pending 01/23/20 Blood Culture - Preliminary, Resulted No Growth after 48 hours. All Specime... 01/23/20 Respiratory Virus Panel (PCR) (ABEBE) - Final, Complete 01/23/20 Blood Culture - Preliminary, Resulted No Growth after 48 hours. All Specime... Current Medications Current Medications Medications (Trade) Dose Ordered Sig/Jaelyn Route PRN Reason Start Time Stop Time Status Last Admin Dose Admin Acetaminophen (Tylenol Tab) 650 mg Q4H PRN PO PAIN OR FEVER 01/24/20 01:30 Al Hydrox/Mg Hydrox/Simethicone (Mylanta) 30 ml DAILY PRN PO DYSPEPSIA 01/24/20 01:30 01/25/20 18:06 Albuterol Sulfate (Proventil, Ventolin Hfa) 2 puff Q4H PRN INH WHEEZING 01/24/20 01:30 01/25/20 22:38 Albuterol/ Ipratropium (Combivent Respimat 100-20mcg) 1 puff RQ6H INH 01/24/20 14:00 01/26/20 13:36 Albuterol/ Ipratropium (Duoneb (Ipr 0.5mg/Alb 2.5mg)) 3 ml Q2H PRN INH WHEEZING 01/24/20 01:30 01/24/20 09:17 DC Ascorbic Acid (Vitamin C) 500 mg DAILY PO 01/24/20 09:00 01/26/20 07:51 Brimonidine Tartrate (Alphagan P 0.15%) 1 drop TID OU 01/24/20 09:00 01/26/20 07:51 Brinzolamide (Azopt) 1 drop TID OU 01/24/20 09:00 01/26/20 07:51 Darbepoetin Steve (Aranesp) 100 mcg Th@09 SC 01/24/20 09:00 01/24/20 12:18 Docusate Sodium (Colace) 100 mg BID PO 01/24/20 09:00 Furosemide (Lasix) 20 mg DAILY PO 01/26/20 09:00 01/26/20 12:45 Furosemide (Lasix) 20 mg DAILY PRN PO EDEMA 01/24/20 02:15 01/26/20 11:57 DC Home Med (Med Rec Complete!) ASDIRECTED XX 01/24/20 01:45 01/24/20 01:32 DC Latanoprost (Xalatan 0.005% Op Soln) 1 drop QHS OU 01/24/20 21:00 01/25/20 21:03 Levofloxacin 750 mg/IV Miscellaneous Supplies 150 ml @ 100 mls/hr Q24H IV 01/24/20 06:00 01/26/20 06:03 Magnesium Hydroxide (Milk Of Magnesia) 30 ml DAILY PRN PO CONSTIPATION 01/24/20 01:30 Multivitamins (Theragram-M) 1 tab DAILY PO 01/24/20 09:00 01/26/20 07:51 Sodium Chloride 1,000 ml @ 15 mls/hr Q24H IV 01/24/20 01:22 01/24/20 09:20 DC 01/24/20 01:45 Sodium Chloride 1,000 ml @ 80 mls/hr [id number] IV 01/24/20 14:00 01/25/20 07:26 DC 01/25/20 04:10 Sodium Chloride (Nacl 0.9%) 500 ml BOLUS STAT IV 01/24/20 09:17 01/24/20 09:20 DC 01/24/20 09:30 Sodium Chloride (Saline Lock Flush) 2 ml ASDIRECTED PRN IV SEE LABEL COMMENTS 01/24/20 07:00 Sodium Chloride (Saline Lock Flush) 2 ml SLF IV 01/24/20 14:00 01/26/20 14:08 Vancomycin HCl 750 mg/IV Miscellaneous Supplies 1 each/ Dextrose 275 ml @ 275 mls/hr Q8H IV 01/26/20 17:00 Vancomycin HCl 1000 mg/IV Miscellaneous Supplies 1 each/ Dextrose 270 ml @ 270 mls/hr Q8H IV 01/24/20 13:00 01/26/20 13:06 DC 01/26/20 04:38 Allergies Coded Allergies: Penicillins (Verified Allergy, Intermediate, HIVES, 11/07/19) Sulfa (Sulfonamide Antibiotics) (Verified Allergy, Intermediate, HIVES, 11/07/19) Maya Garcia MD Jan 26, 2020 15:36
[2020-01-26] MEDS: VANCOMYCIN HCL 750 MG, VIAL MATE ADAPTER 1 EACH in D5W 250 ML IV SCH (16:42)
[2020-01-26] MEDS: LATANOPROST 0.005% OPHTH SOLN 2.5 ML OU SCH (20:49)
[2020-01-27] VITALS (30 sets, daily range): BP systolic 99–104; BP diastolic 49–56; O2SAT 87–98
[2020-01-27] MEDS: VANCOMYCIN HCL 750 MG, VIAL MATE ADAPTER 1 EACH in D5W 250 ML IV SCH ×2 (00:23→09:06)
[2020-01-27] MEDS: COMBIVENT RESPIMAT 100-20MCG INHALER 4GM INH SCH ×4 (01:38→19:57)
[2020-01-27] MEDS: SLF 3 ML SYR IV SCH ×3 (05:01→21:12)
[2020-01-27] MEDS: LevoFLOXacin IV 750 MG in IV 1 EA IV SCH (05:02)
[2020-01-27] MEDS: DOCUSATE SODIUM 100 MG CAP PO SCH ×2 (07:53→21:00)
[2020-01-27 08:11] LABS: HEMATOCRIT 23.6 % (36.0-47.0); HEMOGLOBIN 7.7 g/dl (12.0-15.5); MEAN CORPUSCULAR HEMOGLOBIN 36.2 pg (27.0-33.0); MEAN CORPUSCULAR HGB CONC 32.6 g/dl (32.0-36.5); MEAN CORPUSCULAR VOLUME 110.8 fl (80.0-96.0); PLATELET COUNT, AUTOMATED 187 10^3/uL (150-450); RED BLOOD COUNT 2.13 10^6/uL (4.00-5.40); WHITE BLOOD COUNT 2.8 10^3/uL (4.0-10.0)
[2020-01-27] MEDS: ASCORBIC ACID 500 MG TAB PO SCH (08:39)
[2020-01-27] MEDS: BRIMONIDINE 0.15% OPHTH SOLN 5 ML OU SCH ×3 (08:39→21:12)
[2020-01-27] MEDS: BRINZOLAMIDE 1 % OPHTH SUSP (AZOPT) 10ML OU SCH ×3 (08:39→21:12)
[2020-01-27] MEDS: FUROSEMIDE 20 MG TAB PO SCH (08:39)
[2020-01-27] MEDS: MULTIVITAMINS/MINERALS THERAP 1 TAB PO SCH (08:39)
[2020-01-27 08:43] LABS: ALBUMIN 2.4 GM/DL (3.2-5.2); ALT/SGPT 6 U/L (12-78); BILIRUBIN,TOTAL 0.5 MG/DL (0.2-1.0); BLOOD UREA NITROGEN 12 MG/DL (7-18); CALCIUM LEVEL 8.4 MG/DL (8.8-10.2); CARBON DIOXIDE LEVEL 29 MEQ/L (21-32); CHLORIDE LEVEL 104 MEQ/L (98-107); GLOMERULAR FILTRATION RATE > 60.0 (>45); GLUCOSE, FASTING 85 MG/DL (70-100); POTASSIUM SERUM 4.2 MEQ/L (3.5-5.1); SODIUM LEVEL 139 MEQ/L (136-145); TOTAL PROTEIN 5.5 GM/DL (6.4-8.2)
--- NOTE | 2020-01-27 12:09 | IPNPDOC ---
Date Seen The patient was seen on 01/27/20. Progress Note SUBJECTIVE: Further improved, currently on 1-2 L NC. COVID 19 tests pending. Started daily lasix, diuresing nicely. H/H much slightly decreased to 7.7/23.6. Overall improving slowly. Patient denies chest pain, n/v/d, fevers or chills. OBJECTIVE: VITAL SIGNS: Please see below PHYSICAL EXAMINATION: CONSTITUTIONAL: No acute distress, resting comfortably, AAO x 3 EYES: PERRLA, EOM intact HENT, MOUTH: Normocephalic, atraumatic, moist mucous membranes, nasal cannula in place NECK: SUPPLE, no JVD, no lymphadenopathy, no carotid bruit CV: Regular rate and rhythm, S1S2 normal, no murmurs/rubs/gallops RESPIRATORY: Decreased breath sounds bilaterally, decreased crackles in lung bases. No rhonchi GI: BS positive in 4 quadrants, soft, nontender, nondistended, no rebound or guarding, no organomegaly : Deferred MUSCULOSKELETAL: Normal ROM. No cyanosis, clubbing, swelling, joint deformity, +1 bilateral lower ext edema INTEGUMENTARY: Intact, no rashes, no lesions, no erythema NEUROLOGIC: Cranial Nerves II-XII are intact, no focal deficits PSYCHIATRIC: Mood and affect are normal LABORATORY: Please see below MICROBIOLOGY: Blood cultures x 2 sets NG at 24 hours Sputum culture: YEAST LIKE ORGANISM FULL REPORT IN LAB NOTES (e[facility] and [facility]). NORMAL KINA PRESENT COVID 19 PCR: pending CURRENT MEDICATIONS: Please see below IMAGING: No new imaging. ASSESSMENT: Patient is a 64 y/o F admitted for acute hypoxic respiratory failure multifactorial to bilateral pneumonia, symptomatic anemia. PLAN: 1. Acute hypoxic respiratory failure multifactorial to bilateral pneumonia, symptomatic anemia, r/o COVID 19. Please see below for individual treatment plans. 2. Bilateral pneumonia, healthcare-associated PNA. Now on 2 L NC, cultures above pending, blood cultures NG thus far. MRSA neg, d/c vancomycin today, c/w levofloxacin. C/w MDI for combivent ATC, albuterol PRN. Contact and droplet precautions. Acapella. 3. Presumptive COVID-19. Results still not back. See above under problem #2. 4. Symptomatic anemia in presence of myelodysplastic syndrome. H/H lower today, monitor closely. Goal is >7. Daily CBC. 5. Myelodysplastic syndrome. Spoke with Dr. Stacy, heme/onc early in admission. Will continue aranesp (equivalent dose of 60K epoetin weekly). Watch neutrophils closely. If neutrophils drop <1000, start filgrastim. Can keep filgrastim until neutrophils >1500. Call Dr. Loera with further questions. 6. Diastolic CHF. LVEF 65-70%, echo above. decreased crackles, LE edema still +1. Lasix daily. BNP improving. Monitor for signs of fluid overload. 7. Glaucoma. Continue with her home eyedrops of brimonidine, brinzolamide, latanoprost 8. Lower extremity edema, hx of rheumatic fever. Stable. BNP 900, Echo above. Lasix. DISPOSITION: Patient currently under inpatient status. Plan is PT/OT then hopeful for discharge home when medically improved. VS, I&O, 24H, Fishbone Vital Signs/I&O Vital Signs Date Time Temp Pulse Resp B/P (MAP) Pulse Ox O2 Delivery O2 Flow Rate FiO2 01/27/20 10:00 97 Nasal Cannula 2.0 01/27/20 07:32 97.2 69 18 104/49 (67) I&O- Last 24 Hours up to 6 AM 01/27/20 06:00 Intake Total 2925 ml Output Total 1200 ml Balance 1725 ml Laboratory Data 24H LABS Laboratory Tests 2 01/26/20 12:10: Vancomycin Level Trough 23.9H 01/27/20 08:01: Vancomycin Level Trough 19.5, Nucleated Red Blood Cells % (auto) 0.0, Anion Gap 6L, Glomerular Filtration Rate > 60.0, Calcium Level 8.4L, Total Bilirubin 0.5, Aspartate Amino Transf (AST/SGOT) 6L, Alanine Aminotransferase (ALT/SGPT) 6L, Alkaline Phosphatase 47, Total Protein 5.5L, Albumin 2.4L, Albumin/Globulin Ratio 0.77L CBC/BMP Laboratory Tests 01/27/20 08:01 Microbiology Microbiology 01/26/20 Stool Occult Blood (ABEBE) - Final, Complete 01/24/20 Gram Stain - Final, Complete 01/24/20 Sputum Culture - Final, Complete Yeast Like Organism 01/24/20 Coronavirus COVID-19 PCR (ABEBE), Received Pending 01/23/20 Blood Culture - Preliminary, Resulted No Growth after 72 hours. All specime... 01/23/20 Respiratory Virus Panel (PCR) (ABEBE) - Final, Complete 01/23/20 Blood Culture - Preliminary, Resulted No Growth after 72 hours. All specime... Current Medications Current Medications Medications (Trade) Dose Ordered Sig/Jaelyn Route PRN Reason Start Time Stop Time Status Last Admin Dose Admin Acetaminophen (Tylenol Tab) 650 mg Q4H PRN PO PAIN OR FEVER 01/24/20 01:30 Al Hydrox/Mg Hydrox/Simethicone (Mylanta) 30 ml DAILY PRN PO DYSPEPSIA 01/24/20 01:30 01/25/20 18:06 Albuterol Sulfate (Proventil, Ventolin Hfa) 2 puff Q4H PRN INH WHEEZING 01/24/20 01:30 01/25/20 22:38 Albuterol/ Ipratropium (Combivent Respimat 100-20mcg) 1 puff RQ6H INH 01/24/20 14:00 01/27/20 07:50 Albuterol/ Ipratropium (Duoneb (Ipr 0.5mg/Alb 2.5mg)) 3 ml Q2H PRN INH WHEEZING 01/24/20 01:30 01/24/20 09:17 DC Ascorbic Acid (Vitamin C) 500 mg DAILY PO 01/24/20 09:00 01/27/20 08:39 Brimonidine Tartrate (Alphagan P 0.15%) 1 drop TID OU 01/24/20 09:00 01/27/20 08:39 Brinzolamide (Azopt) 1 drop TID OU 01/24/20 09:00 01/27/20 08:39 Darbepoetin Steve (Aranesp) 100 mcg Th@09 SC 01/24/20 09:00 01/24/20 12:18 Docusate Sodium (Colace) 100 mg BID PO 01/24/20 09:00 Furosemide (Lasix) 20 mg DAILY PO 01/26/20 09:00 01/27/20 08:39 Furosemide (Lasix) 20 mg DAILY PRN PO EDEMA 01/24/20 02:15 01/26/20 11:57 DC Home Med (Med Rec Complete!) ASDIRECTED XX 01/24/20 01:45 01/24/20 01:32 DC Latanoprost (Xalatan 0.005% Op Soln) 1 drop QHS OU 01/24/20 21:00 01/26/20 20:49 Levofloxacin 750 mg/IV Miscellaneous Supplies 150 ml @ 100 mls/hr Q24H IV 01/24/20 06:00 01/27/20 05:02 Magnesium Hydroxide (Milk Of Magnesia) 30 ml DAILY PRN PO CONSTIPATION 01/24/20 01:30 Multivitamins (Theragram-M) 1 tab DAILY PO 01/24/20 09:00 01/27/20 08:39 Sodium Chloride 1,000 ml @ 15 mls/hr Q24H IV 01/24/20 01:22 01/24/20 09:20 DC 01/24/20 01:45 Sodium Chloride 1,000 ml @ 80 mls/hr [id number] IV 01/24/20 14:00 01/25/20 07:26 DC 01/25/20 04:10 Sodium Chloride (Nacl 0.9%) 500 ml BOLUS STAT IV 01/24/20 09:17 01/24/20 09:20 DC 01/24/20 09:30 Sodium Chloride (Saline Lock Flush) 2 ml ASDIRECTED PRN IV SEE LABEL COMMENTS 01/24/20 07:00 Sodium Chloride (Saline Lock Flush) 2 ml SLF IV 01/24/20 14:00 01/27/20 05:01 Vancomycin HCl 750 mg/IV Miscellaneous Supplies 1 each/ Dextrose 275 ml @ 275 mls/hr Q8H IV 01/26/20 17:00 01/27/20 12:08 DC 01/27/20 09:06 Vancomycin HCl 1000 mg/IV Miscellaneous Supplies 1 each/ Dextrose 270 ml @ 270 mls/hr Q8H IV 01/24/20 13:00 01/26/20 13:06 DC 01/26/20 04:38 Allergies Coded Allergies: Penicillins (Verified Allergy, Intermediate, HIVES, 11/07/19) Sulfa (Sulfonamide Antibiotics) (Verified Allergy, Intermediate, HIVES, 11/07/19) Maya Garcia MD Jan 27, 2020 12:09
[2020-01-27] MEDS: LATANOPROST 0.005% OPHTH SOLN 2.5 ML OU SCH (21:12)
[2020-01-28] VITALS (32 sets, daily range): BP systolic 85–118; BP diastolic 50–68; O2SAT 90–98
[2020-01-28] MEDS: COMBIVENT RESPIMAT 100-20MCG INHALER 4GM INH SCH ×4 (01:42→19:51)
[2020-01-28 05:22] LABS: EOS # 0.1 10^3/uL (0.0-0.5); EOS % 2.4 % (0.0-3.0); HEMATOCRIT 22.8 % (36.0-47.0); HEMOGLOBIN 7.5 g/dl (12.0-15.5); LYMPH # 1.3 10^3/uL (1.5-5.0); LYMPH % 45.1 % (24.0-44.0); MEAN CORPUSCULAR HEMOGLOBIN 36.2 pg (27.0-33.0); MEAN CORPUSCULAR HGB CONC 32.9 g/dl (32.0-36.5); MEAN CORPUSCULAR VOLUME 110.1 fl (80.0-96.0); MONO # 0.4 10^3/uL (0.0-0.8); MONO % 11.8 % (0.0-5.0); NEUTROPHILS # 1.2 10^3/uL (1.5-8.5); PLATELET COUNT, AUTOMATED 195 10^3/uL (150-450); RED BLOOD COUNT 2.07 10^6/uL (4.00-5.40)
[2020-01-28 05:43] LABS: BLOOD UREA NITROGEN 11 MG/DL (7-18); CALCIUM LEVEL 8.4 MG/DL (8.8-10.2); CARBON DIOXIDE LEVEL 30 MEQ/L (21-32); CHLORIDE LEVEL 104 MEQ/L (98-107); CREATININE FOR GFR 0.57 MG/DL (0.55-1.30); GLOMERULAR FILTRATION RATE > 60.0 (>45); GLUCOSE, FASTING 98 MG/DL (70-100); SODIUM LEVEL 139 MEQ/L (136-145)
[2020-01-28] MEDS: LevoFLOXacin IV 750 MG in IV 1 EA IV SCH (06:14)
[2020-01-28] MEDS: SLF 3 ML SYR IV SCH ×3 (06:17→21:07)
[2020-01-28 08:06] LABS: BODY FLUID CULTURE Not indicated. (.); LEGIONELLA ANTIGEN URINE Negative (Negative); ORGANISM ID Not indicated. (.); SPECIMEN SOURCE Urine (.); URINE STREP PNEUMONIAE ANTIGEN Negative (Negative)
[2020-01-28] MEDS: MULTIVITAMINS/MINERALS THERAP 1 TAB PO SCH (08:23)
[2020-01-28] MEDS: ASCORBIC ACID 500 MG TAB PO SCH (08:23)
[2020-01-28] MEDS: FUROSEMIDE 20 MG TAB PO SCH ×2 (08:23→21:05)
[2020-01-28] MEDS: BRINZOLAMIDE 1 % OPHTH SUSP (AZOPT) 10ML OU SCH ×3 (08:23→21:06)
[2020-01-28] MEDS: BRIMONIDINE 0.15% OPHTH SOLN 5 ML OU SCH ×3 (08:24→21:05)
[2020-01-28] MEDS: DOCUSATE SODIUM 100 MG CAP PO SCH ×2 (08:26→21:00)
--- NOTE | 2020-01-28 15:00 | IPNPDOC ---
Date Seen The patient was seen on 01/28/20. Progress Note SUBJECTIVE: Improving slowly, currently on 1 L NC. BP soft at baseline with systolic 90-100. COVID 19 tests still pending. Increased lasix to 20 mg PO BID. H/H slightly decreased further to 7.5/22.8. Filgrastim to be considered when neutrophils <1000 per heme, currently 1200. Patient denies chest pain, n/v/d, fevers or chills. OBJECTIVE: VITAL SIGNS: Please see below PHYSICAL EXAMINATION: CONSTITUTIONAL: No acute distress, resting comfortably, AAO x 3 EYES: PERRLA, EOM intact HENT, MOUTH: Normocephalic, atraumatic, moist mucous membranes, nasal cannula in place NECK: SUPPLE, no JVD, no lymphadenopathy, no carotid bruit CV: Regular rate and rhythm, S1S2 normal, no murmurs/rubs/gallops RESPIRATORY: improving breath sounds bilaterally, decreased crackles in lung bases. No rhonchi GI: BS positive in 4 quadrants, soft, nontender, nondistended, no rebound or guarding, no organomegaly : Deferred MUSCULOSKELETAL: Normal ROM. No cyanosis, clubbing, swelling, joint deformity, +1 bilateral lower ext edema INTEGUMENTARY: Intact, no rashes, no lesions, no erythema NEUROLOGIC: Cranial Nerves II-XII are intact, no focal deficits PSYCHIATRIC: Mood and affect are normal LABORATORY: Please see below MICROBIOLOGY: Blood cultures x 2 sets NG at 24 hours Sputum culture: YEAST LIKE ORGANISM FULL REPORT IN LAB NOTES (eCW and [facility]). NORMAL KINA PRESENT COVID 19 PCR: pending CURRENT MEDICATIONS: Please see below IMAGING: No new imaging. ASSESSMENT: Patient is a 64 y/o F admitted for acute hypoxic respiratory failure multifactorial to bilateral pneumonia, symptomatic anemia. PLAN: 1. Acute hypoxic respiratory failure multifactorial to bilateral pneumonia, sy mptomatic anemia, r/o COVID 19. Please see below for individual treatment plans. 2. Bilateral pneumonia, healthcare-associated PNA. Now on 1 L NC, cultures above pending, blood cultures NG thus far. C/w levofloxacin (Day 5). C/w MDI for combivent ATC, albuterol PRN. Contact and droplet precautions. Acapella. 3. Presumptive COVID-19. Results pending. See above under problem #2. 4. Symptomatic anemia in presence of myelodysplastic syndrome. H/H lower today, monitor closely. Goal is >7. Daily CBC. 5. Myelodysplastic syndrome. Spoke with Dr. Stacy, heme/onc early in admission. Will continue aranesp (equivalent dose of 60K epoetin weekly). Watch neutrophils closely. If neutrophils drop <1000, start filgrastim. Can keep filgrastim until neutrophils >1500. Call Dr. Loera with further questions-not currently consulted officially. 6. Diastolic CHF. LVEF 65-70%, echo above. decreased crackles, LE edema still +1. Lasix daily. BNP improving. Monitor for signs of fluid overload. 7. Glaucoma. Continue with her home eyedrops of brimonidine, brinzolamide, latanoprost 8. Lower extremity edema, hx of rheumatic fever. Stable. BNP 900, Echo above. Lasix. DISPOSITION: Patient currently under inpatient status. Plan is PT/OT then hopeful for discharge home when medically improved. VS, I&O, 24H, Fishbone Vital Signs/I&O Vital Signs Date Time Temp Pulse Resp B/P (MAP) Pulse Ox O2 Delivery O2 Flow Rate FiO2 01/28/20 12:00 96 Room Air 01/28/20 12:00 1.0 01/28/20 12:00 96.0 77 18 115/60 (78) I&O- Last 24 Hours up to 6 AM 01/28/20 06:00 Intake Total 1530 ml Output Total 1550 ml Balance -20 ml Laboratory Data 24H LABS Laboratory Tests 2 01/28/20 05:03: Immature Granulocyte % (Auto) 0.7, Neutrophils (%) (Auto) 39.0, Lymphocytes (%) (Auto) 45.1H, Monocytes (%) (Auto) 11.8H, Eosinophils (%) (Auto) 2.4, Basophils (%) (Auto) 1.0, Neutrophils # (Auto) 1.2L, Lymphocytes # (Auto) 1.3L, Monocytes # (Auto) 0.4, Eosinophils # (Auto) 0.1, Basophils # (Auto) 0.0, Nucleated Red Blood Cells % (auto) 0.0, Anion Gap 5L, Glomerular Filtration Rate > 60.0, Calcium Level 8.4L CBC/BMP Laboratory Tests 01/28/20 05:03 Microbiology Microbiology 01/26/20 Stool Occult Blood (ABEBE) - Final, Complete 01/24/20 Gram Stain - Final, Complete 01/24/20 Sputum Culture - Final, Complete Yeast Like Organism 01/24/20 Coronavirus COVID-19 PCR (ABEBE), Received Pending 01/23/20 Blood Culture - Preliminary, Resulted No Growth after 72 hours. All specime... 01/23/20 Respiratory Virus Panel (PCR) (ABEBE) - Final, Complete 01/23/20 Blood Culture - Preliminary, Resulted No Growth after 72 hours. All specime... Current Medications Current Medications Medications (Trade) Dose Ordered Sig/Jaelyn Route PRN Reason Start Time Stop Time Status Last Admin Dose Admin Acetaminophen (Tylenol Tab) 650 mg Q4H PRN PO PAIN OR FEVER 01/24/20 01:30 Al Hydrox/Mg Hydrox/Simethicone (Mylanta) 30 ml DAILY PRN PO DYSPEPSIA 01/24/20 01:30 01/25/20 18:06 Albuterol Sulfate (Proventil, Ventolin Hfa) 2 puff Q4H PRN INH WHEEZING 01/24/20 01:30 01/25/20 22:38 Albuterol/ Ipratropium (Combivent Respimat 100-20mcg) 1 puff RQ6H INH 01/24/20 14:00 01/28/20 14:11 Albuterol/ Ipratropium (Duoneb (Ipr 0.5mg/Alb 2.5mg)) 3 ml Q2H PRN INH WHEEZING 01/24/20 01:30 01/24/20 09:17 DC Ascorbic Acid (Vitamin C) 500 mg DAILY PO 01/24/20 09:00 01/28/20 08:23 Brimonidine Tartrate (Alphagan P 0.15%) 1 drop TID OU 01/24/20 09:00 01/28/20 08:24 Brinzolamide (Azopt) 1 drop TID OU 01/24/20 09:00 01/28/20 08:23 Darbepoetin Steve (Aranesp) 100 mcg Th@09 SC 01/24/20 09:00 01/24/20 12:18 Docusate Sodium (Colace) 100 mg BID PO 01/24/20 09:00 Furosemide (Lasix) 20 mg BID PO 01/28/20 08:00 01/28/20 08:23 Furosemide (Lasix) 20 mg DAILY PO 01/26/20 09:00 01/28/20 07:34 DC 01/27/20 08:39 Furosemide (Lasix) 20 mg DAILY PRN PO EDEMA 01/24/20 02:15 01/26/20 11:57 DC Home Med (Med Rec Complete!) ASDIRECTED XX 01/24/20 01:45 01/24/20 01:32 DC Latanoprost (Xalatan 0.005% Op Soln) 1 drop QHS OU 01/24/20 21:00 01/27/20 21:12 Levofloxacin 750 mg/IV Miscellaneous Supplies 150 ml @ 100 mls/hr Q24H IV 01/24/20 06:00 01/28/20 06:14 Magnesium Hydroxide (Milk Of Magnesia) 30 ml DAILY PRN PO CONSTIPATION 01/24/20 01:30 Miscellaneous (Unresolved Clarification Entry) SEE LABEL COMMENTS DAILY XX 01/28/20 09:00 01/28/20 10:47 DC Multivitamins (Theragram-M) 1 tab DAILY PO 01/24/20 09:00 01/28/20 08:23 Sodium Chloride 1,000 ml @ 15 mls/hr Q24H IV 01/24/20 01:22 01/24/20 09:20 DC 01/24/20 01:45 Sodium Chloride 1,000 ml @ 80 mls/hr [id number] IV 01/24/20 14:00 01/25/20 07:26 DC 01/25/20 04:10 Sodium Chloride (Nacl 0.9%) 500 ml BOLUS STAT IV 01/24/20 09:17 01/24/20 09:20 DC 01/24/20 09:30 Sodium Chloride (Saline Lock Flush) 2 ml ASDIRECTED PRN IV SEE LABEL COMMENTS 01/24/20 07:00 Sodium Chloride (Saline Lock Flush) 2 ml SLF IV 01/24/20 14:00 01/28/20 08:24 Vancomycin HCl 750 mg/IV Miscellaneous Supplies 1 each/ Dextrose 275 ml @ 275 mls/hr Q8H IV 01/26/20 17:00 01/27/20 12:08 DC 3/29/20 09:06 Vancomycin HCl 1000 mg/IV Miscellaneous Supplies 1 each/ Dextrose 270 ml @ 270 mls/hr Q8H IV 01/24/20 13:00 01/26/20 13:06 DC 01/26/20 04:38 Allergies Coded Allergies: Penicillins (Verified Allergy, Intermediate, HIVES, 11/07/19) Sulfa (Sulfonamide Antibiotics) (Verified Allergy, Intermediate, HIVES, 11/07/19) Maya Garcia MD Jan 28, 2020 15:00
[2020-01-28] MEDS: LATANOPROST 0.005% OPHTH SOLN 2.5 ML OU SCH (21:06)
[2020-01-28 21:19] LABS: HEMATOCRIT 27.2 % (36.0-47.0)
[2020-01-29] VITALS (22 sets, daily range): BP systolic 92–120; BP diastolic 50–68; O2SAT 80–97
[2020-01-29] MEDS: COMBIVENT RESPIMAT 100-20MCG INHALER 4GM INH SCH ×4 (01:34→20:05)
[2020-01-29 05:19] LABS: BASO % 1.3 % (0.0-1.0); EOS % 1.3 % (0.0-3.0); HEMATOCRIT 27.3 % (36.0-47.0); HEMOGLOBIN 9.1 g/dl (12.0-15.5); LYMPH # 1.5 10^3/uL (1.5-5.0); LYMPH % 48.7 % (24.0-44.0); MEAN CORPUSCULAR HEMOGLOBIN 35.4 pg (27.0-33.0); MEAN CORPUSCULAR HGB CONC 33.3 g/dl (32.0-36.5); MEAN CORPUSCULAR VOLUME 106.2 fl (80.0-96.0); MONO # 0.3 10^3/uL (0.0-0.8); MONO % 9.2 % (0.0-5.0); NEUTROPHILS # 1.2 10^3/uL (1.5-8.5); NEUTROPHILS % 39.2 % (36.0-66.0); PLATELET COUNT, AUTOMATED 208 10^3/uL (150-450); RED BLOOD COUNT 2.57 10^6/uL (4.00-5.40); WHITE BLOOD COUNT 3.1 10^3/uL (4.0-10.0)
[2020-01-29 05:47] LABS: BLOOD UREA NITROGEN 12 MG/DL (7-18); CALCIUM LEVEL 8.2 MG/DL (8.8-10.2); CARBON DIOXIDE LEVEL 33 MEQ/L (21-32); CHLORIDE LEVEL 103 MEQ/L (98-107); CREATININE FOR GFR 0.54 MG/DL (0.55-1.30); GLOMERULAR FILTRATION RATE > 60.0 (>45); GLUCOSE, FASTING 93 MG/DL (70-100); SODIUM LEVEL 140 MEQ/L (136-145)
[2020-01-29] MEDS: SLF 3 ML SYR IV SCH ×3 (05:51→20:07)
[2020-01-29] MEDS: LevoFLOXacin IV 750 MG in IV 1 EA IV SCH (05:51)
[2020-01-29] MEDS: ASCORBIC ACID 500 MG TAB PO SCH (08:21)
[2020-01-29] MEDS: MULTIVITAMINS/MINERALS THERAP 1 TAB PO SCH (08:21)
[2020-01-29] MEDS: LATANOPROST 0.005% OPHTH SOLN 2.5 ML OU SCH ×2 (08:21→16:13)
[2020-01-29] MEDS: BRINZOLAMIDE 1 % OPHTH SUSP (AZOPT) 10ML OU SCH ×3 (08:21→20:05)
[2020-01-29] MEDS: FUROSEMIDE 20 MG TAB PO SCH ×2 (08:21→20:05)
[2020-01-29] MEDS: DOCUSATE SODIUM 100 MG CAP PO SCH ×2 (08:24→20:07)
[2020-01-29] MEDS: BRIMONIDINE 0.15% OPHTH SOLN 5 ML OU SCH ×3 (08:26→20:05)
[2020-01-29] MEDS ORDERED: FLUCONAZOLE 50MG TABLET PO SCH (09:00)
--- NOTE | 2020-01-29 11:12 | IPNPDOC ---
Subjective Date Seen The patient was seen on 01/29/20. Subjective Chief Complaint/HPI Patient is comfortable offers no new complaints, in no distress. Wishes to go home General: Denies: ROS Unobtainable, Chills, Night Sweats, Fatigue, Malaise, Normal Appetite, Other Symptoms Constitutional: Denies: Chills, Fever, Malaise, Night Sweats, Weakness, Fatigue, Weight Loss, Lethargy, Other Skin: Denies: Rash, Lesions, Jaundice, Bruising, Itching, Dry, Breakdown, Nail Changes, Other Pulmonary: Denies: Dyspnea, Cough, Pleuritic Chest Pain, Other Symptoms Cardiovascular: Denies: Chest Pain, Palpitations, Orthopnea, Paroxysmal Noc. Dyspnea, Edema, Lt Headedness, Other Symptoms Gastrointestinal: Denies: Nausea, Vomiting, Abdominal Pain, Diarrhea, Constipation, Melena, Hematochezia, Other Symptoms Hematologic: Denies: Bruising, Bleeding Excessively, Petecchia, Purpura, Enlarged Lymph Nodes, Other Hematologic Endocrine: Denies: Polydipsia, Polyphagia, Polyuria, Heat Intolerance, Cold Intolerance, Other Endocrine Sx Musculoskeletal: Denies: Neck Pain, Back Pain, Shoulder Pain, Arm Pain, Hand Pain, Leg Pain, Foot Pain, Joint Pain, Muscle Pain, Spasms, Other Symptoms Objective Physical Examination ENT Exam: Positive: Atraumatic, Mucous membr. moist/pink Neck Exam: Positive: Supple, +2 carotid pulse wo bruit Chest Exam: Positive: Clear to auscultation, Other (crackles noted in the upper right lung valverde as well as a lower left lung val[place]. No audible wheezing) Heart Exam: Positive: Rate Normal, Tachycardic, Regular Rhythm, Normal S1, Normal S2, Murmurs (systolic murmur appreciated 4/6) Abdomen Exam: Positive: Normal bowel sounds, Soft Extremity Exam: Positive: Edema (2+ pitting edema in bilateral shins) Skin Exam: Positive: Nl turgor and temperature Neuro Exam: Positive: Normal Gait, Normal Speech, Strength at 5/5 X4 ext, Normal Tone, Sensation Intact, Cranial Nerves 3-12 NL Psych Exam: Positive: Mental status NL, Mood NL Assessment /Plan Problems (1) Acute respiratory failure with hypoxia Status: Acute Problem Text: This is a 64 years old white female with past medical history of myelodysplastic syndrome admitted with acute hypoxic respiratory failure secondary to bilateral pneumonia, symptomatic anemia Patient is also under investigation to rule out Covid 19 infection which is still pending Continue pneumonia treatment as described below, as well as oxygen supplement as needed (2) Pneumonia Status: Acute Problem Text: was diagnoses with bilateral pneumonia, most likely healthcare associated. She is comfortable with 1 L of nasal cannula Will continue Levaquin but will change it to by mouth as today will be her day #6 Patient level work today is pending. Will order tomorrow morning's lab work Blood cultures are negative so far, sputum culture shows yeastlike organism related Diflucan by mouth Continue Combivent, albuterol MDI, acapella Contact and droplet isolation (3) Iron deficiency anemia Status: Chronic Problem Text: Symptomatic anemia in presence of myelodysplastic syndrome. H&H is pending today, monitor closely. Goal is >7. Daily CBC. (4) Myelodysplastic syndrome Status: Chronic Problem Text: Myelodysplastic syndrome. spoke with Dr. Stacy, heme/onc early in admission. Will continue aranesp (equivalent dose of 60K epoetin weekly). Watch neutrophils closely. If neutrophils drop <1000, start filgrastim. Can keep filgrastim until neut rophils >1500. (5) Acute diastolic (congestive) heart failure Status: Acute Problem Text: Acute diastolic heart failure. LVEF 65-70%, Clinically improving with IV Lasix Monitor I&O's Plan/VTE VTE Prophylaxis Ordered?: Yes VS, I&O, 24H, Fishbone Vital Signs/I&O Vital Signs Date Time Temp Pulse Resp B/P (MAP) Pulse Ox O2 Delivery O2 Flow Rate FiO2 01/29/20 06:00 91 Nasal Cannula 1.0 01/29/20 04:00 96.7 67 18 118/68 (85) I&O- Last 24 Hours up to 6 AM 01/29/20 06:00 Intake Total 1120 ml Output Total 2200 ml Balance -1080 ml Laboratory Data 24H LABS Laboratory Tests 2 01/29/20 05:04: Immature Granulocyte % (Auto) 0.3, Neutrophils (%) (Auto) 39.2, Lymphocytes (%) (Auto) 48.7H, Monocytes (%) (Auto) 9.2H, Eosinophils (%) (Auto) 1.3, Basophils (%) (Auto) 1.3H, Neutrophils # (Auto) 1.2L, Lymphocytes # (Auto) 1.5, Monocytes # (Auto) 0.3, Eosinophils # (Auto) 0.0, Basophils # (Auto) 0.0, Nucleated Red Blood Cells % (auto) 0.0, Anion Gap 4L, Glomerular Filtration Rate > 60.0, Calcium Level 8.2L CBC/BMP Laboratory Tests 01/28/20 21:06 01/29/20 05:04 Microbiology Microbiology 01/26/20 Stool Occult Blood (ABEBE) - Final, Complete 01/24/20 Gram Stain - Final, Complete 01/24/20 Sputum Culture - Final, Complete Yeast Like Organism 01/24/20 Coronavirus COVID-19 PCR (ABEBE), Received Pending 01/23/20 Blood Culture - Final, Complete NO GROWTH AFTER 5 DAYS 01/23/20 Respiratory Virus Panel (PCR) (ABEBE) - Final, Complete 01/23/20 Blood Culture - Final, Complete NO GROWTH AFTER 5 DAYS POWER APONTE MD Jan 29, 2020 11:12
[2020-01-29] MEDS ORDERED: FLUCONAZOLE 100 MG TAB PO SCH (12:06)
[2020-01-29] MEDS: FLUCONAZOLE 100 MG TAB PO SCH (13:18)
[2020-01-30] VITALS (8 sets, daily range): BP systolic 111–117; BP diastolic 54–67; O2SAT 91–97
[2020-01-30] MEDS: COMBIVENT RESPIMAT 100-20MCG INHALER 4GM INH SCH ×2 (02:31→07:32)
[2020-01-30 04:51] LABS: BASO % 1.1 % (0.0-1.0); EOS # 0.1 10^3/uL (0.0-0.5); EOS % 2.3 % (0.0-3.0); HEMATOCRIT 24.6 % (36.0-47.0); HEMOGLOBIN 8.1 g/dl (12.0-15.5); LYMPH # 1.2 10^3/uL (1.5-5.0); LYMPH % 45.8 % (24.0-44.0); MEAN CORPUSCULAR HEMOGLOBIN 35.5 pg (27.0-33.0); MEAN CORPUSCULAR HGB CONC 32.9 g/dl (32.0-36.5); MEAN CORPUSCULAR VOLUME 107.9 fl (80.0-96.0); MONO # 0.2 10^3/uL (0.0-0.8); NEUTROPHILS # 1.1 10^3/uL (1.5-8.5); NEUTROPHILS % 42.4 % (36.0-66.0); PLATELET COUNT, AUTOMATED 204 10^3/uL (150-450); RED BLOOD COUNT 2.28 10^6/uL (4.00-5.40); WHITE BLOOD COUNT 2.6 10^3/uL (4.0-10.0)
[2020-01-30 05:11] LABS: BLOOD UREA NITROGEN 12 MG/DL (7-18); CALCIUM LEVEL 7.8 MG/DL (8.8-10.2); CARBON DIOXIDE LEVEL 32 MEQ/L (21-32); CHLORIDE LEVEL 103 MEQ/L (98-107); CREATININE FOR GFR 0.57 MG/DL (0.55-1.30); GLOMERULAR FILTRATION RATE > 60.0 (>45); GLUCOSE, FASTING 90 MG/DL (70-100); POTASSIUM SERUM 3.6 MEQ/L (3.5-5.1); SODIUM LEVEL 140 MEQ/L (136-145)
[2020-01-30] MEDS: SLF 3 ML SYR IV SCH (05:12)
[2020-01-30] MEDS ORDERED: LevoFLOXacin 750 MG TABLET PO SCH (06:00)
[2020-01-30] MEDS: FUROSEMIDE 20 MG TAB PO SCH (08:58)
[2020-01-30] MEDS: ASCORBIC ACID 500 MG TAB PO SCH (08:58)
[2020-01-30] MEDS: MULTIVITAMINS/MINERALS THERAP 1 TAB PO SCH (08:58)
[2020-01-30] MEDS: FLUCONAZOLE 100 MG TAB PO SCH (08:58)
[2020-01-30] MEDS: BRINZOLAMIDE 1 % OPHTH SUSP (AZOPT) 10ML OU SCH (08:59)
[2020-01-30] MEDS: BRIMONIDINE 0.15% OPHTH SOLN 5 ML OU SCH (08:59)
[2020-01-30] MEDS: DOCUSATE SODIUM 100 MG CAP PO SCH (09:00)
[2020-01-30] MEDS ORDERED: COMBAER6 INH (09:40)
[2020-01-30] MEDS ORDERED: LEVA750T7 PO (09:40)
[2020-01-30] MEDS ORDERED: FLUC100T PO (09:40)
--- NOTE | 2020-01-30 11:04 | DS.PDOC ---
Discharge Summary General Date of Admission Jan 24, 2020 at 01:24 Date of Discharge 01/30/20 Discharge Summary PROCEDURES PERFORMED DURING STAY: None. ADMITTING DIAGNOSES: 1. Bilateral pneumonia, asymptomatic anemia, rule out COVID-19. DISCHARGE DIAGNOSES: 1. Acute respiratory failure with hypoxia, bilateral pneumonia, iron deficiency anemia, myelodysplastic syndrome, acute diastolic heart failure, COVID- 19 ruled out. COMPLICATIONS/CHIEF COMPLAINT: Acute Resp Failure With Hypoxia. HISTORY OF PRESENT ILLNESS: 64-year-old female with past medical history of recently diagnosed myelodysplastic syndrome presents with worsening shortness of breath and fatigue over the past 5 days. Patient reports that when symptoms initially started, she was experiencing fatigue after some physical exertion. She also states that she had associated upper respiratory like symptoms. She says that she initially had a productive cough with yellow sputum and increased sinus pressure and pain in her ears. She went to see her doctor for her regular scheduled Procrit shots for the myelodysplastic syndrome. At that time, the shot was not given and patient was prescribed Levaquin to be taken by by mouth for 10 days. However, she continued to feel fatigued and her symptoms of dyspnea on exertion worsened. Given her worsening shortness of breath and generalized malaise, patient decided to come to the ER for further evaluation. Patient reports that her cough has actually improved and she is no longer producing much sputum. She denies any associated fevers, chills, abdominal pain, chest pain. She has some swelling in her lower extremities which she says is chronic. She has been using some nebulizers (Atrovent) at home for her shortness of breath which was minimally helpful. She denies any recent travel history, sick contacts. She states that her has been doing most of the shopping and usually disimpact EDGES and grocery bags when he comes home. Her is not sick at this time. 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 She is independent in all her ADLs and IADLs. She was at her . She is a lifelong nonsmoker, nondrinker, nondrug user. Upon ER evaluation, patient was noted to be hypoxic to 85% and required approximately 4 L via nasal cannula to maintain saturation greater than 92. She was also found to be anemic from her baseline with extensive bilateral pneumonia noted on CT chest. Patient to be admitted for symptomatic anemia, suspected bilateral pneumonia, rule out COVI. HOSPITAL COURSE: Acute respiratory failure with hypoxia This is a 64 years old white female with past medical history of myelodysplastic syndrome admitted with acute hypoxic respiratory failure secondary to bilateral pneumonia, symptomatic anemia Patient was suspected for COVID- 19 infection, nasal swab was sent out and the report came as negative. Hence, the Covid 19 infection was ruled out Acute respiratory failure with hypoxia, most likely secondary to bilateral community-acquired pneumonia. Pts respiratory failure resolved as pneumonia was treated inpatient. She is completely asymptomatic. No shortness of breath. On examination, no wheezing, rales or rhonchi and will be discharged home today on all current meds Bilateral Pneumonia Pt was diagnoses with bilateral pneumonia, most likely healthcare associated. She is comfortable with 1 L of nasal cannula Patient was continued with IV Levaquin for 5 days later she was switched to by mouth Levaquin Blood cultures are negative so far, sputum culture shows yeastlike organism, patient was started on Diflucan by mouth Eschen will need Levaquin 250 mg by mouth daily for 5 days and Diflucan 100 mg by mouth daily for 10 days Continue Combivent, albuterol MDI, acapella Patient was advised to social distance herself from everybody at least 2 weeks. She is clinically stable Iron deficiency anemia Symptomatic anemia in presence of myelodysplastic syndrome. Patient's hemoglobin is 8.1, hematocrit 24.6 Patient will follow with Dr. Stacy for any further intervention as outpatient Myelodysplastic syndrome Myelodysplastic syndrome. spoke with Dr. Stacy, heme/onc early in admission. Will continue aranesp (equivalent dose of 60K epoetin weekly). Watch neutrophils closely. If neutrophils drop <1000, start filgrastim. Can keep filgrastim until neutrophils >1500. Patient's WBC count is 2.6 today She is afebrile, asymptomatic, will be discharged home and she will follow up with Dr. Stacy as an outpatient in one week Acute diastolic (congestive) heart failure Acute diastolic heart failure. LVEF 65-70%, Clinically improving with IV Lasix Continue all home meds. DISCHARGE MEDICATIONS: Please see below. ALLERGIES: Please see below. PHYSICAL EXAMINATION ON DISCHARGE: VITAL SIGNS: Please see below. GENERAL: Within normal limits HEENT: PERRLA. Extraocular muscles intact NECK: Supple CARDIOVASCULAR EXAMINATION: S1, S2, regular RESPIRATORY EXAMINATION: Clear to A&P ABDOMINAL EXAMINATION: , Soft, nontender. Once was present EXTREMITIES: No clubbing, cyanosis, edema SKIN: Normal NEUROLOGICAL EXAMINATION: . No focal motor sensory deficit PSYCHIATRIC EXAMINATION: Normal LABORATORY DATA: Please see below. IMAGING: . CTA chest: IMPRESSION: 1. Extensive bilateral pneumonia. 2. No pulmonary embolism. 3. Right greater than left small pleural effusions. 4. Diffusely dilated, predominantly fluid-filled esophagus, similar to the prior exam. PROGNOSIS: Good ACTIVITY: As tolerated. DIET: As tolerated DISCHARGE PLAN: Follow with Dr. Stacy as an outpatient DISPOSITION: . Home DISCHARGE INSTRUCTIONS: 1. As per discharge instructions. ITEMS TO FOLLOWUP ON ON OUTPATIENT: 1. Follow with Dr. Stacy as an outpatient. DISCHARGE CONDITION: Stable. TIME SPENT ON DISCHARGE: 42 minutes. Vital Signs/I&Os Vital Signs Date Time Temp Pulse Resp B/P (MAP) Pulse Ox O2 Delivery O2 Flow Rate FiO2 01/30/20 10:00 94 Room Air 01/30/20 08:00 97.1 63 20 111/54 (73) 01/29/20 06:00 1.0 I&O- Last 24 Hours up to 6 AM 01/30/20 06:00 Intake Total 720 ml Output Total 1750 ml Balance -1030 ml Laboratory Data Labs 24H Laboratory Tests 2 01/30/20 04:09: Immature Granulocyte % (Auto) 0.4, Neutrophils (%) (Auto) 42.4, Lymphocytes (%) (Auto) 45.8H, Monocytes (%) (Auto) 8.0H, Eosinophils (%) (Auto) 2.3, Basophils (%) (Auto) 1.1H, Neutrophils # (Auto) 1.1L, Lymphocytes # (Auto) 1.2L, Monocytes # (Auto) 0.2, Eosinophils # (Auto) 0.1, Basophils # (Auto) 0.0, Nucleated Red Blood Cells % (auto) 0.0 01/30/20 04:10: Anion Gap 5L, Glomerular Filtration Rate > 60.0, Calcium Level 7.8L CBC/BMP Laboratory Tests 01/30/20 04:09 01/30/20 04:10 Microbiology Microbiology 01/26/20 Stool Occult Blood (ABEBE) - Final, Complete 01/24/20 Gram Stain - Final, Complete 01/24/20 Sputum Culture - Final, Complete Yeast Like Organism 01/24/20 Coronavirus COVID-19 PCR (ABEBE) - Final, Complete 01/23/20 Blood Culture - Final, Complete NO GROWTH AFTER 5 DAYS 01/23/20 Respiratory Virus Panel (PCR) (ABEBE) - Final, Complete 01/23/20 Blood Culture - Final, Complete NO GROWTH AFTER 5 DAYS Discharge Medications Scheduled Ascorbic Acid (Vitamin C) 500 Mg Tablet, 500 MG PO DAILY, (Reported) Bimatoprost (Lumigan) 0.01% 2.5ML Drops, 1 DROP OS QHS, (Reported) Brimonidine Tartrate (Brimonidine Tartrate) 0.2% 5ML Drops, 1 DROP OD BID, (Reported) Brinzolamide/Brimonidine Tart (Simbrinza 1%-0.2% Eye Drops) 8 Ml Drops.susp, 1 DROP OS BID, (Reported) Elderberry Fruit and Flower (Black Elderberry 575 mg Cap) 1 Each Capsule, 2 CAP PO DAILY, (Reported) Epoetin Tseve (Procrit) 20,000 Unit/1 Ml Vial, 20,000 UNIT IM QWEEK, (Reported) TUESDAY MORNING Fluconazole (Fluconazole) 100 Mg Tablet, 100 MG PO DAILY Ipratropium/Albuterol Sulfate (Combivent Respimat 20-100 Mcg) 4 Gm Mist.inhal, 1 PUFF INH RQ6H Levofloxacin (Levaquin) 750 Mg Tablet, 750 MG PO DAILY@06 Multivitamins (Thera M Plus Tablet) 1 Each Tablet, 1 TAB PO DAILY, (Reported) Scheduled PRN Albuterol Sulf (Albuterol Sulfate) 2.5 Mg/3 Ml Vial.neb, 2.5 MG INH Q4H PRN for SHORTNESS OF BREATH, (Reported) Furosemide (Furosemide) 20 Mg Tablet, 20 MG PO DAILY PRN for EDEMA, (Reported) Allergies Coded Allergies: Penicillins (Verified Allergy, Intermediate, HIVES, 11/07/19) Sulfa (Sulfonamide Antibiotics) (Verified Allergy, Intermediate, HIVES, 11/07/19) POWER APONTE MD Jan 30, 2020 11:03
== END 2020-01-30 14:01 | disposition home or self-care (01) | DRG 193 ==
LOC: M ED 21:02 → M ED INP 01-24 01:24 → ENRESERV 01-24 01:43 → M PCU 01-24 02:30
PROVIDERS: ADMIT Internal Medicine; ATTEND Internal Medicine
PROC: 30233N1 Transfusion of Nonautologous Red Blood Cells into Peripheral Vein, Percutaneous Approach (ICD-10-PCS; principal; 2020-01-24)
DX: J18.9 Pneumonia, unspecified organism (principal); J96.01 Acute respiratory failure with hypoxia; I50.33 Acute on chronic diastolic (congestive) heart failure; D46.9 Myelodysplastic syndrome, unspecified; D50.9 Iron deficiency anemia, unspecified; Z11.59 Encounter for screening for other viral diseases; Z79.899 Other long term (current) drug therapy; Z88.0 Allergy status to penicillin; Z88.2 Allergy status to sulfonamides; H40.9 Unspecified glaucoma

== ENCOUNTER 2020-05-15 12:53 | Outpatient (CLI) | payer MEDICARE, OTHER ==
[~2020-05-15] VITALS: Ht 175.3 cm; Wt 65.5 kg
[~2020-05-15 12:53] MED LIST changes: +ACETAMINOPHEN TAB 650MG DOSE (2X325MG) PO SCH; +BLAC1CAP2 PO; +BRIM0.2S13 OD; +C 50TAB PO; +COMBAER6 INH; +FLUC100T PO; +LEVA750T7 PO; +PANT40TA29 PO; -PANT40TA3 PO; +PROC20004 IM; +diphenhydrAMINE 25MG CAP PO SCH
[2020-05-15 14:02] VITALS: BP 125/65
[2020-05-15 14:17] VITALS: BP 126/57
[2020-05-15 15:45] VITALS: BP 155/73
[2020-05-15 16:00] VITALS: BP 149/70
[2020-05-15 17:11] VITALS: BP 135/71
[2020-08-15] MEDS ORDERED: BIOT1CAP2 PO (09:15)
== END 2020-05-15 17:15 | disposition home or self-care (01) ==
LOC: M INFU 12:53
PROVIDERS: ATTEND Internal Medicine Medical Oncology
DX: D46.9 Myelodysplastic syndrome, unspecified (principal)
CPT/HCPCS: 36430; P9016

== ENCOUNTER 2020-08-06 10:24 | Outpatient (CLI) | payer MEDICARE, OTHER ==
[~2020-08-06] VITALS: Ht 175.3 cm; Wt 87.9 kg
[2020-08-06] VITALS (7 sets, daily range): BP systolic 118–131; BP diastolic 53–78
[2020-08-06] MEDS ORDERED: ACETAMINOPHEN TAB 650MG DOSE (2X325MG) PO SCH (13:00)
[2020-08-06] MEDS ORDERED: diphenhydrAMINE 25MG CAP PO SCH (13:00)
[2020-08-15] MEDS ORDERED: BIOT1CAP2 PO (09:15)
== END 2020-08-06 15:30 | disposition home or self-care (01) ==
LOC: M INFU 10:24
PROVIDERS: ATTEND Internal Medicine Medical Oncology
DX: D46.9 Myelodysplastic syndrome, unspecified (principal)
CPT/HCPCS: 36430; P9016

== ENCOUNTER 2021-02-04 14:16 | Outpatient (CLI) | payer MEDICARE, OTHER ==
[~2021-02-04] VITALS: Ht 175.3 cm; Wt 93.3 kg
[~2021-02-04 14:16] MED LIST changes: -ACETAMINOPHEN TAB 650MG DOSE (2X325MG) PO SCH; +BIOT1CAP2 PO; -diphenhydrAMINE 25MG CAP PO SCH
[2021-02-04 14:20] VITALS: BP 138/68
[2021-02-04 15:22] VITALS: BP 138/68
[2021-02-04] MEDS ORDERED: ACETAMINOPHEN TAB 650MG DOSE (2X325MG) PO ONE (16:15)
[2021-02-04] MEDS ORDERED: diphenhydrAMINE 25MG CAP PO ONE (16:15)
[2021-02-04 17:00] VITALS: BP 137/75
[2021-02-04] MEDS ORDERED: FUROSEMIDE 20MG/2ML VIAL (J1940) IV ONE (19:00)
== END 2021-02-04 17:00 | disposition home or self-care (01) ==
LOC: M INFU 14:16
PROVIDERS: ATTEND Internal Medicine Medical Oncology
DX: D46.9 Myelodysplastic syndrome, unspecified (principal); Z88.0 Allergy status to penicillin; Z88.2 Allergy status to sulfonamides
CPT/HCPCS: 36415; 36430; 86850; 86900; 86901; 86920; P9016

== ENCOUNTER 2021-06-09 10:22 | Outpatient (CLI) | payer MEDICARE, OTHER ==
[~2021-06-09] VITALS: Ht 175.3 cm; Wt 93.9 kg
[~2021-06-09 10:22] MED LIST changes: +ACETAMINOPHEN TAB 650MG DOSE (2X325MG) PO SCH; +diphenhydrAMINE 25MG CAP PO SCH
[2021-06-09 10:35] VITALS: BP 127/64
[2021-06-09 11:20] VITALS: BP 102/54
[2021-06-09 13:08] VITALS: BP 140/65
[2021-06-09 13:25] VITALS: BP 132/77
[2021-06-09 14:58] VITALS: BP 114/63
== END 2021-06-09 15:00 | disposition home or self-care (01) ==
LOC: M INFU 10:22
PROVIDERS: ATTEND Internal Medicine Medical Oncology
DX: D46.9 Myelodysplastic syndrome, unspecified (principal); Z88.0 Allergy status to penicillin; Z88.2 Allergy status to sulfonamides
CPT/HCPCS: 36430; P9016

== ENCOUNTER → 2022-02-18 | Outpatient (CLI) | payer MEDICARE, OTHER ==
[~2022-02-18] MED LIST changes: -ACETAMINOPHEN TAB 650MG DOSE (2X325MG) PO SCH; -FLUC100T PO; +FLUC100T3 PO; -LEVO500T3 PO; +LEVO500T4 PO; +cannabis PO; -diphenhydrAMINE 25MG CAP PO SCH
== END ==
LOC: M CARPUL 14:06
PROVIDERS: ATTEND Internal Medicine Hematology & Oncology
DX: D46.9 Myelodysplastic syndrome, unspecified (principal); R01.1 Cardiac murmur, unspecified; I08.0 Rheumatic disorders of both mitral and aortic valves

== ENCOUNTER 2022-03-03 21:24 | Emergency (ER) | payer MEDICARE, OTHER ==
[~2022-03-03] VITALS: Ht 175.3 cm; Wt 91.4 kg
[2022-03-03] MEDS ORDERED: NIRM1TAB PO (21:36)
[2022-03-03] MEDS ORDERED: PRED20TA PO (21:37)
[2022-03-03] MEDS ORDERED: AZIT-10 PO (21:37)
[2022-03-03 22:03] VITALS: O2SAT 94
[2022-03-03 23:00] LABS: LYMPH # 0.3 10^3/uL (1.5-5.0); MEAN CORPUSCULAR HEMOGLOBIN 39.6 pg (27.0-33.0); MEAN CORPUSCULAR HGB CONC 34.2 g/dl (32.0-36.5); MONO # 0.1 10^3/uL (0.0-0.8); MONO % 5.8 % (2.0-8.0); NEUTROPHILS % 68.4 % (36.0-66.0); PLATELET COUNT, AUTOMATED 186 10^3/uL (150-450); RED BLOOD COUNT 1.64 10^6/uL (4.00-5.40); WHITE BLOOD COUNT 1.2 10^3/uL (4.0-10.0)
[2022-03-03 23:16] LABS: INR 1.27; PROTHROMBIN TIME 16.3 SECONDS (12.7-14.5)
[2022-03-03 23:25] LABS: MEAN CORPUSCULAR VOLUME 115.9 fl (80.0-96.0); NEUTROPHILS # 0.8 10^3/uL (1.5-8.5)
[2022-03-03 23:28] LABS: MB/CK RELATIVE INDEX 4.35 (< OR =4)
[2022-03-03 23:29] LABS: ALBUMIN 3.9 GM/DL (3.2-5.2); ALT/SGPT 48 U/L (12-78); BILIRUBIN,DIRECT < 0.1 MG/DL (0.0-0.2); BILIRUBIN,TOTAL 0.5 MG/DL (0.2-1.0); BLOOD UREA NITROGEN 18 MG/DL (7-18); CALCIUM LEVEL 9.1 MG/DL (8.8-10.2); CARBON DIOXIDE LEVEL 24 MEQ/L (21-32); CHLORIDE LEVEL 107 MEQ/L (98-107); CREATININE FOR GFR 0.52 MG/DL (0.55-1.30); GLOMERULAR FILTRATION RATE > 60.0 (>45); GLUCOSE, FASTING 155 MG/DL (70-100); HEMOGLOBIN 6.5 g/dl (12.0-15.5); NT-PRO BNP 1965 PG/ML (<125); POTASSIUM SERUM 4.6 MEQ/L (3.5-5.1); SODIUM LEVEL 139 MEQ/L (136-145); TOTAL PROTEIN 6.6 GM/DL (6.4-8.2)
[2022-03-03 23:31] LABS: ANISOCYTOSIS 4+
[2022-03-03 23:32] LABS: OVALOCYTES 1+; POIKILOCYTOSIS 1+
[2022-03-03 23:36] LABS: TEAR DROP CELLS 2+
[2022-03-03 23:37] LABS: SCHISTOCYTES 2+
[2022-03-03 23:38] LABS: PLATELET ESTIMATE NORMAL (NORMAL)
[2022-03-04] MEDS ORDERED: FUROSEMIDE 40MG/4ML VIAL (J1940) IV ONE (00:55)
[2022-03-04] MEDS ORDERED: ALBUTEROL 90 MCG/ACT 8GM HFA INHALER INH ONE (01:00)
[2022-03-04] MEDS ORDERED: methylPREDNISolone 125MG 2ML VIAL IV ONE (01:00)
[2022-03-04 01:45] VITALS: BP 164/83
[2022-03-04] MEDS ORDERED: PROV108A INH (02:14)
[2022-03-04] MEDS ORDERED: PRED20TA PO (02:14)
== END 2022-03-04 03:07 | disposition home or self-care (01) ==
LOC: M ED 21:24
DX: U07.1 COVID-19 (principal); J45.909 Unspecified asthma, uncomplicated; I50.9 Heart failure, unspecified; E03.9 Hypothyroidism, unspecified; H40.9 Unspecified glaucoma; K21.9 Gastro-esophageal reflux disease without esophagitis; D46.9 Myelodysplastic syndrome, unspecified; Z98.84 Bariatric surgery status; Z88.0 Allergy status to penicillin; Z88.2 Allergy status to sulfonamides; Z79.51 Long term (current) use of inhaled steroids; Z79.899 Other long term (current) drug therapy
CPT/HCPCS: 36415; 71046; 80048; 80076; 82550; 82553; 83880; 84484; 85025; 85610; 87486; 87581; 87633; 87798; 93005; 94760; 99284; J1940; J2930

== ENCOUNTER 2022-05-07 10:08 | Outpatient (CLI) | payer MEDICARE, OTHER ==
[~2022-05-07] VITALS: Ht 175.3 cm; Wt 88.6 kg
[2022-05-07 10:00] VITALS: BP 143/63
[~2022-05-07 10:08] MED LIST changes: +ALBU2.5V10 INH; -ALBU83IN INH; +AZIT-10 PO; +NIRM1TAB PO; +PRED20TA PO; +PROV108A INH
[2022-05-07] MEDS ORDERED: SODIUM CHLORIDE 0.9% INJ 10 ML SYR IV PRN (10:30)
[2022-05-07] MEDS ORDERED: ACETAMINOPHEN TAB 650MG DOSE (2X325MG) PO ONE (10:30)
[2022-05-07] MEDS ORDERED: diphenhydrAMINE 25MG CAP PO ONE (10:30)
[2022-05-07 10:55] VITALS: BP 108/59
[2022-05-07 12:15] VITALS: BP 139/63
[2022-05-07 13:00] VITALS: BP 115/58
[2022-05-07 14:15] VITALS: BP 116/56
[2022-05-07 14:30] VITALS: BP 118/58
== END 2022-05-07 14:35 | disposition home or self-care (01) ==
LOC: M INFU 10:08
PROVIDERS: ATTEND Nurse Practitioner
DX: D46.9 Myelodysplastic syndrome, unspecified (principal)
CPT/HCPCS: 36430; P9040

== ENCOUNTER 2023-08-15 11:20 | Inpatient (IN) | payer MEDICARE, OTHER ==
[~2023-08-15] VITALS: Ht 175.3 cm; Wt 69.0 kg
[~2023-08-15 11:20] MED LIST changes: +ACET1TAB55; +ALBU6.7H6 INH; +AZIT500T5 PO; +FERR325T3 PO; +FOLI0.4T5 PO; +LEVO1TAB39 PO; -LEVO500T4 PO; +LOPE1CAP5 PO; +PANT20TA6 PO; +POTA-165 PO; -PROV108A INH; +SUCR1ORA PO; +TRAM50TA2; +XALA0.007 OS
[2023-08-15] MEDS ORDERED: MED REC IN PROGRESS XX SCH (11:50)
[2023-08-15 12:02] LABS: BASO % 0.9 % (0.0-1.0); EOS % 0.9 % (0.0-3.0); HEMATOCRIT 30.8 % (36.0-47.0); HEMOGLOBIN 9.9 g/dl (12.0-15.5); LYMPH # 0.5 10^3/uL (1.5-5.0); LYMPH % 11.8 % (24.0-44.0); MEAN CORPUSCULAR HEMOGLOBIN 35.2 pg (27.0-33.0); MEAN CORPUSCULAR HGB CONC 32.1 g/dl (32.0-36.5); MEAN CORPUSCULAR VOLUME 109.6 fl (80.0-96.0); MONO # 0.2 10^3/uL (0.0-0.8); MONO % 5.2 % (2.0-8.0); NEUTROPHILS # 3.6 10^3/uL (1.5-8.5); PLATELET COUNT, AUTOMATED 236 10^3/uL (150-450); RED BLOOD COUNT 2.81 10^6/uL (4.00-5.40); WHITE BLOOD COUNT 4.4 10^3/uL (4.0-10.0)
[2023-08-15] MEDS ORDERED: NS 500 ML IV ONE ×4 (12:25→20:05)
[2023-08-15 12:27] LABS: CK-MB VALUE MASS < 1.0 NG/ML (<3.6)
[2023-08-15 12:29] LABS: ALBUMIN 2.8 G/DL (3.2-5.2); ALKALINE PHOSPHATASE 152 U/L (46-116); ALT/SGPT 32 U/L (7.0-40); AMYLASE 37 U/L (30-118); AST/SGOT 43 U/L (<34); BILIRUBIN,DIRECT 0.4 MG/DL (<0.4); BILIRUBIN,TOTAL 1.1 MG/DL (0.3-1.2); BLOOD UREA NITROGEN 20 MG/DL (9-23); CALCIUM LEVEL 8.5 MG/DL (8.3-10.6); CARBON DIOXIDE LEVEL 27 MMOL/L (20-31); CHLORIDE LEVEL 103 MMOL/L (98-107); CREATININE FOR GFR 0.52 MG/DL (0.55-1.30); GLOMERULAR FILTRATION RATE > 60.0 (>45); GLUCOSE, FASTING 127 MG/DL (74-106); POTASSIUM SERUM 4.7 MMOL/L (3.5-5.1); SODIUM LEVEL 137 MMOL/L (136-145); TOTAL PROTEIN 5.5 G/DL (5.7-8.2)
[2023-08-15 12:33] LABS: CPK CREATINE PHOSPHOKINASE 44 U/L (34-145); MB/CK RELATIVE INDEX 2.27 (< OR =4)
[2023-08-15 12:36] LABS: PROCALCITONIN 0.35 ng/ml
[2023-08-15 12:42] LABS: INR 1.49; PROTHROMBIN TIME 17.6 SECONDS (12.5-14.5)
[2023-08-15 12:44] LABS: PARTIAL THROMBOPLASTIN TIME 40.4 SECONDS (24.8-34.2)
[2023-08-15 12:51] LABS: CK-MB VALUE MASS < 1.0 NG/ML (<3.6)
[2023-08-15 12:53] LABS: CPK CREATINE PHOSPHOKINASE < 15 U/L (34-145)
[2023-08-15] MEDS ORDERED: LevoFLOXacin IV 750 MG in IV 1 EA IV ONE (13:10)
[2023-08-15] MEDS ORDERED: MED REC CURRENTLY UNOBTAINABLE XX SCH (13:40)
[2023-08-15 14:42] LABS: APPEARANCE, URINE CLOUDY (CLEAR); BACTERIA, URINE AUTO NEGATIVE (NEGATIVE); BILIRUBIN, URINE AUTO NEGATIVE (NEGATIVE); BLOOD, URINE BLOOD 1+ (NEGATIVE); CALCIUM OXALATE CRYSTALS SMALL; COLOR, URINE AMBER (YELLOW); GLUCOSE, URINE (UA) AUTO NEGATIVE (NEGATIVE); KETONE, URINE AUTO NEGATIVE (NEGATIVE); LEUKOCYTE ESTERASE, URINE AUTO TRACE (NEGATIVE); MUCUS, URINE LARGE (NEGATIVE); NITRITE, URINE AUTO NEGATIVE (NEGATIVE); PROTEIN, URINE AUTO 1+ mg/dL (NEGATIVE); RBC, URINE AUTO 8 /HPF (0-3); SPECIFIC GRAVITY URINE AUTO 1.019 (1.002-1.035); SQUAMOUS EPITHELIAL CELL UR AU 2 /HPF (0-6); WBC, URINE AUTO 8 /HPF (0-3)
[2023-08-15] MEDS ORDERED: ACETAMINOPHEN TAB 650MG DOSE (2X325MG) PO PRN (16:05)
[2023-08-15] MEDS ORDERED: MAALOX 30 ML SUSP *UDC PO PRN (16:05)
[2023-08-15] MEDS ORDERED: MOM 30ML SUSPENSION UDC PO PRN (16:05)
[2023-08-15] MEDS ORDERED: TRAM50TA2 PO (16:22)
[2023-08-15] MEDS ORDERED: ACET1TAB55 PO (16:26)
[2023-08-15] MEDS ORDERED: HOME MED LIST COMPLETE! XX SCH ×2 (16:35→18:05)
[2023-08-15] MEDS ORDERED: ALBU8.5H INH (17:56)
[2023-08-15] MEDS ORDERED: FOLI400T5 PO (17:56)
[2023-08-15] MEDS ORDERED: PANT40TA29 PO (17:56)
[2023-08-15] MEDS ORDERED: BRIN8DRO OS (18:03)
[2023-08-15 18:05] LABS: CPK CREATINE PHOSPHOKINASE < 15 U/L (34-145); RHEUMATOID FACTOR QUANT 6.9 IU/ML (<14); THYROXINE (T4) 8.9 UG/DL (4.5-10.9); TOTAL 25(OH) VITAMIN D 20.8 NG/ML (20.0-100.0); VITAMIN B12 LEVEL 1479 PG/ML (211-911)
[2023-08-15 19:02] VITALS: BP 81/54; TEMP 97.7; O2SAT 100
[2023-08-15 20:00] VITALS: BP 86/53
[2023-08-15] MEDS ORDERED: PERCOCET 5MG/325MG TAB PO ONE (20:30)
[2023-08-15] MEDS ORDERED: ISOVUE-370 76% 100ML VIAL As Ordered ONE (21:59)
[2023-08-15] MEDS ORDERED: VANCOMYCIN HCL 750 MG, VIAL MATE ADAPTER 1 EACH in D5W 250 ML IV ONE (23:00)
[2023-08-15 23:34] VITALS: BP 95/52; TEMP 97.3; O2SAT 97
[2023-08-16] VITALS (11 sets, daily range): BP systolic 92–116; BP diastolic 51–76; TEMP 96.8–98.6; O2SAT 95–100
[2023-08-16] MEDS ORDERED: VANCOMYCIN HCL 750 MG, VIAL MATE ADAPTER 1 EACH in D5W 250 ML IV ONE ×3
[2023-08-16] MEDS: HYDROCORTISONE 100MG/2ML VIAL IV SCH ×2 (00:46→06:13)
[2023-08-16] MEDS ORDERED: LevoFLOXacin 500 MG TABLET PO SCH (06:00)
[2023-08-16] MEDS: LevoFLOXacin 750 MG TABLET PO SCH (06:13)
[2023-08-16 06:24] LABS: BLOOD UREA NITROGEN 22 MG/DL (9-23); CALCIUM LEVEL 7.8 MG/DL (8.3-10.6); CARBON DIOXIDE LEVEL 26 MMOL/L (20-31); CHLORIDE LEVEL 104 MMOL/L (98-107); CREATININE FOR GFR 0.58 MG/DL (0.55-1.30); GLOMERULAR FILTRATION RATE > 60.0 (>45); GLUCOSE, FASTING 104 MG/DL (74-106); MAGNESIUM LEVEL 1.6 MG/DL (1.8-2.4); POTASSIUM SERUM 4.3 MMOL/L (3.5-5.1); SODIUM LEVEL 133 MMOL/L (136-145)
[2023-08-16 07:49] LABS: MEAN CORPUSCULAR HEMOGLOBIN 34.4 pg (27.0-33.0); MEAN CORPUSCULAR HGB CONC 32.5 g/dl (32.0-36.5); PLATELET COUNT, AUTOMATED 149 10^3/uL (150-450); RED BLOOD COUNT 1.83 10^6/uL (4.00-5.40); WHITE BLOOD COUNT 1.1 10^3/uL (4.0-10.0)
[2023-08-16 08:06] LABS: HEMATOCRIT 19.4 % (36.0-47.0); HEMOGLOBIN 6.3 g/dl (12.0-15.5)
[2023-08-16] MEDS: MAGNESIUM OXIDE 400MG TAB (MAG-OX) PO SCH ×2 (08:33→20:56)
[2023-08-16] MEDS ORDERED: MAG SULF 1GM/100ML (MAG RUN) 1 GM in IV 1 EA IV ONE (09:00)
[2023-08-16] MEDS ORDERED: VANCOMYCIN HCL 750 MG, VIAL MATE ADAPTER 1 EACH in D5W 250 ML IV SCH (09:00)
[2023-08-16] MEDS ORDERED: FLUDROCORTISONE ACETATE 0.1 MG TAB PO SCH (09:00)
[2023-08-16] MEDS ORDERED: LevoFLOXacin IV 750 MG in IV 1 EA IV SCH (14:00)
[2023-08-16] MEDS ORDERED: PREVNAR-20 VACCINE 0.5ML SYRINGE IM.IMMUN ONE (18:00)
[2023-08-16] MEDS: EYE OS SCH (20:56)
[2023-08-16] MEDS: SIMBRINZA OS SCH (20:56)
[2023-08-16 21:11] LABS: HEMATOCRIT 24.3 % (36.0-47.0); HEMOGLOBIN 8.1 g/dl (12.0-15.5); MEAN CORPUSCULAR HEMOGLOBIN 33.5 pg (27.0-33.0); MEAN CORPUSCULAR HGB CONC 33.3 g/dl (32.0-36.5); MEAN CORPUSCULAR VOLUME 100.4 fl (80.0-96.0); PLATELET COUNT, AUTOMATED 117 10^3/uL (150-450); RED BLOOD COUNT 2.42 10^6/uL (4.00-5.40); WHITE BLOOD COUNT 1.9 10^3/uL (4.0-10.0)
[2023-08-17] VITALS: BP 100/58; TEMP 97.1; O2SAT 99
[2023-08-17 03:49] VITALS: BP 113/57; TEMP 97; O2SAT 98
[2023-08-17 05:11] LABS: HEMOGLOBIN 8.6 g/dl (12.0-15.5); MEAN CORPUSCULAR HEMOGLOBIN 33.2 pg (27.0-33.0); MEAN CORPUSCULAR HGB CONC 33.1 g/dl (32.0-36.5); MEAN CORPUSCULAR VOLUME 100.4 fl (80.0-96.0); PLATELET COUNT, AUTOMATED 159 10^3/uL (150-450); RED BLOOD COUNT 2.59 10^6/uL (4.00-5.40); WHITE BLOOD COUNT 1.7 10^3/uL (4.0-10.0)
[2023-08-17 05:35] LABS: ALBUMIN 2.2 G/DL (3.2-5.2); ALKALINE PHOSPHATASE 103 U/L (46-116); ALT/SGPT 25 U/L (7.0-40); AST/SGOT 28 U/L (<34); BILIRUBIN,TOTAL 1.1 MG/DL (0.3-1.2); BLOOD UREA NITROGEN 21 MG/DL (9-23); CALCIUM LEVEL 8.2 MG/DL (8.3-10.6); CARBON DIOXIDE LEVEL 27 MMOL/L (20-31); CHLORIDE LEVEL 106 MMOL/L (98-107); CREATININE FOR GFR 0.53 MG/DL (0.55-1.30); GLOMERULAR FILTRATION RATE > 60.0 (>45); GLUCOSE, FASTING 82 MG/DL (74-106); POTASSIUM SERUM 4.4 MMOL/L (3.5-5.1); SODIUM LEVEL 139 MMOL/L (136-145); TOTAL PROTEIN 4.3 G/DL (5.7-8.2)
[2023-08-17] MEDS: LevoFLOXacin 750 MG TABLET PO SCH (06:19)
[2023-08-17 08:03] VITALS: BP 95/58; TEMP 98.5; O2SAT 97
[2023-08-17] MEDS: EYE OS SCH ×2 (08:13→21:08)
[2023-08-17] MEDS: SIMBRINZA OS SCH ×2 (08:13→21:08)
[2023-08-17] MEDS: MAGNESIUM OXIDE 400MG TAB (MAG-OX) PO SCH ×2 (08:13→21:08)
[2023-08-17 16:08] LABS: MYCOPLASMA PNEUMONIAE IgG 648 U/mL (0-99); MYCOPLASMA PNEUMONIAE IgM <770 U/mL (0-769)
[2023-08-17 19:44] VITALS: BP 95/53; TEMP 98.1; O2SAT 98
[2023-08-18 00:04] VITALS: BP 82/51; TEMP 97.4; O2SAT 99
[2023-08-18 01:05] VITALS: BP 91/50
[2023-08-18] MEDS: LevoFLOXacin 750 MG TABLET PO SCH (05:48)
[2023-08-18 06:10] LABS: HEMATOCRIT 23.1 % (36.0-47.0); HEMOGLOBIN 7.6 g/dl (12.0-15.5); MEAN CORPUSCULAR HEMOGLOBIN 32.9 pg (27.0-33.0); MEAN CORPUSCULAR HGB CONC 32.9 g/dl (32.0-36.5); PLATELET COUNT, AUTOMATED 139 10^3/uL (150-450); RED BLOOD COUNT 2.31 10^6/uL (4.00-5.40); WHITE BLOOD COUNT 1.4 10^3/uL (4.0-10.0)
[2023-08-18 06:35] LABS: ALBUMIN 2.1 G/DL (3.2-5.2); ALKALINE PHOSPHATASE 91 U/L (46-116); ALT/SGPT 17 U/L (7.0-40); AST/SGOT 22 U/L (<34); BILIRUBIN,TOTAL 0.8 MG/DL (0.3-1.2); BLOOD UREA NITROGEN 18 MG/DL (9-23); CALCIUM LEVEL 8.2 MG/DL (8.3-10.6); CARBON DIOXIDE LEVEL 29 MMOL/L (20-31); CHLORIDE LEVEL 103 MMOL/L (98-107); CREATININE FOR GFR 0.51 MG/DL (0.55-1.30); GLOMERULAR FILTRATION RATE > 60.0 (>45); GLUCOSE, FASTING 81 MG/DL (74-106); POTASSIUM SERUM 4.7 MMOL/L (3.5-5.1); SODIUM LEVEL 135 MMOL/L (136-145); TOTAL PROTEIN 3.9 G/DL (5.7-8.2)
[2023-08-18 07:45] VITALS: BP 94/63; TEMP 96.4; O2SAT 100
[2023-08-18] MEDS: EYE OS SCH ×2 (09:44→22:03)
[2023-08-18] MEDS: MAGNESIUM OXIDE 400MG TAB (MAG-OX) PO SCH ×2 (09:44→22:03)
[2023-08-18] MEDS: SIMBRINZA OS SCH ×2 (09:44→22:03)
[2023-08-18 12:00] VITALS: BP 96/62; TEMP 96.4; O2SAT 100
[2023-08-18 16:17] LABS: MYCOPLASMA PNEUMONIAE IgG 609 U/mL (0-99); MYCOPLASMA PNEUMONIAE IgM <770 U/mL (0-769)
[2023-08-18 20:05] VITALS: BP 101/57; TEMP 97.5; O2SAT 99
[2023-08-19 05:37] VITALS: BP 95/56; TEMP 97.8; O2SAT 93
[2023-08-19] MEDS: LevoFLOXacin 750 MG TABLET PO SCH (06:22)
[2023-08-19 06:55] LABS: HEMATOCRIT 24.4 % (36.0-47.0); HEMOGLOBIN 8.1 g/dl (12.0-15.5); MEAN CORPUSCULAR HEMOGLOBIN 33.8 pg (27.0-33.0); MEAN CORPUSCULAR HGB CONC 33.2 g/dl (32.0-36.5); MEAN CORPUSCULAR VOLUME 101.7 fl (80.0-96.0); PLATELET COUNT, AUTOMATED 136 10^3/uL (150-450); WHITE BLOOD COUNT 1.4 10^3/uL (4.0-10.0)
[2023-08-19] MEDS: MAGNESIUM OXIDE 400MG TAB (MAG-OX) PO SCH ×2 (08:37→21:46)
[2023-08-19] MEDS: EYE OS SCH ×2 (08:47→21:46)
[2023-08-19] MEDS: SIMBRINZA OS SCH ×2 (08:47→21:46)
[2023-08-19] MEDS ORDERED: MAGN400T2 PO ×2 (17:22→18:08)
[2023-08-19] MEDS ORDERED: LEVO1TAB40 PO ×2 (17:29→18:08)
[2023-08-19] MEDS ORDERED: PERCOCET 5MG/325MG TAB PO ONE (20:35)
[2023-08-20 06:00] VITALS: BP 96/55; TEMP 97.7; O2SAT 97
[2023-08-20 06:37] LABS: HEMATOCRIT 24.7 % (36.0-47.0); HEMOGLOBIN 8.1 g/dl (12.0-15.5); MEAN CORPUSCULAR HEMOGLOBIN 33.1 pg (27.0-33.0); MEAN CORPUSCULAR HGB CONC 32.8 g/dl (32.0-36.5); MEAN CORPUSCULAR VOLUME 100.8 fl (80.0-96.0); PLATELET COUNT, AUTOMATED 122 10^3/uL (150-450); RED BLOOD COUNT 2.45 10^6/uL (4.00-5.40); WHITE BLOOD COUNT 1.4 10^3/uL (4.0-10.0)
[2023-08-20 11:21] LABS: ALBUMIN 2.6 G/DL (3.9-5.0); ALKALINE PHOSPHATASE 100 U/L (35-104); ALT/SGPT 15 U/L (1-33); AST/SGOT 26 U/L (5-40); BILIRUBIN,TOTAL < 0.7 MG/DL (0.2-1.3); BLOOD UREA NITROGEN 18 MG/DL (7-21); CALCIUM LEVEL 8.4 MG/DL (8.8-10.2); CARBON DIOXIDE LEVEL 27 MEQ/L (22-30); CHLORIDE LEVEL 101 MEQ/L (98-107); CREATININE FOR GFR 0.4 MG/DL (0.7-1.5); GLOMERULAR FILTRATION RATE > 60.0 (>45); GLUCOSE, FASTING 84 MG/DL; POTASSIUM SERUM 4.3 MEQ/L (3.6-5.0); SODIUM LEVEL 135 MEQ/L (134-153); TOTAL PROTEIN 4.4 G/DL (6.3-8.2)
[2023-08-21 11:08] LABS: BLOOD UREA NITROGEN 20 MG/DL (7-21); CHLORIDE LEVEL 102 MEQ/L (98-107); CREATININE FOR GFR 0.4 MG/DL (0.7-1.5); GLOMERULAR FILTRATION RATE > 60.0 (>45); GLUCOSE, FASTING 83 MG/DL; POTASSIUM SERUM 4.3 MEQ/L (3.6-5.0); SODIUM LEVEL 135 MEQ/L (134-153)
[2023-08-21 11:09] LABS: ALBUMIN 2.6 G/DL (3.9-5.0); ALKALINE PHOSPHATASE 99 U/L (35-104); ALT/SGPT 14 U/L (1-33); AST/SGOT 22 U/L (5-40); BILIRUBIN,TOTAL < 0.7 MG/DL (0.2-1.3); CALCIUM LEVEL 8.2 MG/DL (8.8-10.2); CARBON DIOXIDE LEVEL 25 MEQ/L (22-30); TOTAL PROTEIN 4.3 G/DL (6.3-8.2)
== END 2023-08-20 08:50 | disposition home health service (06) | DRG 314 ==
LOC: M ED 11:20 → EDSEX 11:20 → EDBD 11:20 → M ED INP 16:01 → M PCU 19:05 → M MS5PR 08-18 20:00
PROVIDERS: ADMIT Student in an Organized Health Care Education/Training Program; ATTEND Internal Medicine
PROC: B246ZZZ Ultrasonography of Right and Left Heart (ICD-10-PCS; principal; 2023-08-15)
PROC: 30233N1 Transfusion of Nonautologous Red Blood Cells into Peripheral Vein, Percutaneous Approach (ICD-10-PCS; 2023-08-16)
DX: I27.20 Pulmonary hypertension, unspecified (principal); J18.9 Pneumonia, unspecified organism; N39.0 Urinary tract infection, site not specified; J90 Pleural effusion, not elsewhere classified; J98.11 Atelectasis; D61.818 Other pancytopenia; I50.1 Left ventricular failure, unspecified; I50.32 Chronic diastolic (congestive) heart failure; I50.810 Right heart failure, unspecified; K76.1 Chronic passive congestion of liver; R94.31 Abnormal electrocardiogram [ECG] [EKG]; I27.81 Cor pulmonale (chronic); D73.1 Hypersplenism; I95.89 Other hypotension; E83.42 Hypomagnesemia; D46.9 Myelodysplastic syndrome, unspecified; I89.0 Lymphedema, not elsewhere classified; R25.1 Tremor, unspecified; I08.0 Rheumatic disorders of both mitral and aortic valves; D63.8 Anemia in other chronic diseases classified elsewhere; H40.9 Unspecified glaucoma; K21.9 Gastro-esophageal reflux disease without esophagitis; Z79.899 Other long term (current) drug therapy; Z88.0 Allergy status to penicillin; Z88.2 Allergy status to sulfonamides; Z20.822 Contact with and (suspected) exposure to COVID-19; Z99.3 Dependence on wheelchair; Z98.49 Cataract extraction status, unspecified eye

== ENCOUNTER → 2023-08-31 | Outpatient (REF) | payer MEDICARE, OTHER ==
[~2023-08-31] MED LIST changes: +ACET1TAB55 PO; +ALBU8.5H INH; +BRIN8DRO OS; +FOLI400T5 PO; +LEVO1TAB40 PO; +MAGN400T2 PO; +SUCR1SS PO; +TRAM50TA2 PO
[2023-08-31 15:50] LABS: BASO % 0.5 % (0.0-1.0); HEMATOCRIT 24.6 % (36.0-47.0); HEMOGLOBIN 8.1 g/dl (12.0-15.5); LYMPH # 0.9 10^3/uL (1.5-5.0); LYMPH % 43.7 % (24.0-44.0); MEAN CORPUSCULAR HEMOGLOBIN 34.6 pg (27.0-33.0); MEAN CORPUSCULAR HGB CONC 32.9 g/dl (32.0-36.5); MEAN CORPUSCULAR VOLUME 105.1 fl (80.0-96.0); MONO # 0.1 10^3/uL (0.0-0.8); NEUTROPHILS % 50.8 % (36.0-66.0); PLATELET COUNT, AUTOMATED 198 10^3/uL (150-450); RED BLOOD COUNT 2.34 10^6/uL (4.00-5.40)
== END ==
LOC: M SHH 15:23
PROVIDERS: ATTEND Internal Medicine Medical Oncology
DX: D46.9 Myelodysplastic syndrome, unspecified (principal); D63.8 Anemia in other chronic diseases classified elsewhere

== ENCOUNTER → 2023-09-14 | Outpatient (REF) | payer MEDICARE, OTHER ==
[2023-09-14 11:50] LABS: BASO % 1.2 % (0.0-1.0); LYMPH # 0.9 10^3/uL (1.5-5.0); LYMPH % 49.7 % (24.0-44.0); MEAN CORPUSCULAR HEMOGLOBIN 34.5 pg (27.0-33.0); MEAN CORPUSCULAR VOLUME 104.8 fl (80.0-96.0); MONO # 0.1 10^3/uL (0.0-0.8); MONO % 6.4 % (2.0-8.0); NEUTROPHILS % 42.1 % (36.0-66.0); PLATELET COUNT, AUTOMATED 191 10^3/uL (150-450); RED BLOOD COUNT 1.68 10^6/uL (4.00-5.40); WHITE BLOOD COUNT 1.7 10^3/uL (4.0-10.0)
[2023-09-14 11:57] LABS: HEMATOCRIT 17.6 % (36.0-47.0)
[2023-09-14 11:58] LABS: NEUTROPHILS # 0.7 10^3/uL (1.5-8.5)
[2023-09-14 12:00] LABS: HEMOGLOBIN 5.8 g/dl (12.0-15.5)
== END ==
LOC: M SHH 11:20
PROVIDERS: ATTEND Internal Medicine Medical Oncology
DX: D46.9 Myelodysplastic syndrome, unspecified (principal); D63.8 Anemia in other chronic diseases classified elsewhere

== ENCOUNTER → 2023-09-15 | Outpatient (CLI) | payer MEDICARE, OTHER ==
[2023-09-15] VITALS (10 sets, daily range): BP systolic 74–116; BP diastolic 40–75; TEMP 97.4–98; O2SAT 90–100
[~2023-09-15] MED LIST changes: +ACETAMINOPHEN TAB 650MG DOSE (2X325MG) PO SCH; -BRIN8DRO OS; +BRIN8DRO OU; +HYDR-3713 PO; +MAGN400T33 PO; +MED REC COMMENT; +MIRA3350 PO; +OMEP-173 PO; +VITATAB73 PO; +diphenhydrAMINE 25MG CAP PO SCH
== END ==
LOC: M INFU 07:40
PROVIDERS: ATTEND Internal Medicine Medical Oncology
DX: D46.9 Myelodysplastic syndrome, unspecified (principal); Z88.0 Allergy status to penicillin; Z88.2 Allergy status to sulfonamides
CPT/HCPCS: 36415; 36430; 36592; 86850; 86900; 86901; 86920; P9016

== ENCOUNTER → 2023-09-19 | Outpatient (CLI) | payer MEDICARE, OTHER ==
[~2023-09-19] MED LIST changes: -ACETAMINOPHEN TAB 650MG DOSE (2X325MG) PO SCH; +BIMA01SOL OU; -diphenhydrAMINE 25MG CAP PO SCH
== END ==
LOC: M PAL 09:45
PROVIDERS: ATTEND Family Medicine
DX: D46.9 Myelodysplastic syndrome, unspecified (principal); I27.20 Pulmonary hypertension, unspecified; I42.1 Obstructive hypertrophic cardiomyopathy; R53.1 Weakness; R53.81 Other malaise; I95.89 Other hypotension; G89.29 Other chronic pain; Z79.899 Other long term (current) drug therapy; Z80.0 Family history of malignant neoplasm of digestive organs; Z85.828 Personal history of other malignant neoplasm of skin; Z88.0 Allergy status to penicillin; Z88.1 Allergy status to other antibiotic agents; Z88.2 Allergy status to sulfonamides; Z98.84 Bariatric surgery status; Z99.3 Dependence on wheelchair

== ENCOUNTER → 2023-09-19 | Outpatient (REF) | payer MEDICARE, OTHER ==
[~2023-09-19] MED LIST changes: -BIMA01SOL OU
[2023-09-20 10:37] LABS: BASO % 0.9 % (0.0-1.0); EOS % 0.5 % (0.0-3.0); LYMPH # 0.7 10^3/uL (1.5-5.0); LYMPH % 32.1 % (24.0-44.0); MEAN CORPUSCULAR HEMOGLOBIN 34.2 pg (27.0-33.0); MEAN CORPUSCULAR HGB CONC 33.7 g/dl (32.0-36.5); MEAN CORPUSCULAR VOLUME 101.6 fl (80.0-96.0); MONO # 0.2 10^3/uL (0.0-0.8); MONO % 8.1 % (2.0-8.0); NEUTROPHILS # 1.3 10^3/uL (1.5-8.5); NEUTROPHILS % 57.9 % (36.0-66.0); PLATELET COUNT, AUTOMATED 130 10^3/uL (150-450); RED BLOOD COUNT 1.93 10^6/uL (4.00-5.40); WHITE BLOOD COUNT 2.2 10^3/uL (4.0-10.0)
[2023-09-20 10:42] LABS: HEMOGLOBIN 6.6 g/dl (12.0-15.5)
[2023-09-20 10:43] LABS: HEMATOCRIT 19.6 % (36.0-47.0)
== END ==
LOC: M SHH 10:16
PROVIDERS: ATTEND Nurse Practitioner
DX: D46.9 Myelodysplastic syndrome, unspecified (principal); D63.8 Anemia in other chronic diseases classified elsewhere

== ENCOUNTER 2023-09-20 15:32 | Emergency (ER) | payer MEDICARE, OTHER ==
[~2023-09-20] VITALS: Ht 175.3 cm; Wt 67.1 kg
[2023-09-20] VITALS (7 sets, daily range): BP systolic 81–106; BP diastolic 49–59; TEMP 96.1–96.7; O2SAT 99–100
[~2023-09-20 15:32] MED LIST changes: -MAGN400T33 PO; -MED REC COMMENT; -OMEP-173 PO; -VITATAB73 PO
[2023-09-20] MEDS ORDERED: NS 500 ML IV ONE ×2 (16:05→17:15)
[2023-09-20 16:34] LABS: BASO % 1.1 % (0.0-1.0); EOS % 0.5 % (0.0-3.0); HEMATOCRIT 21.3 % (36.0-47.0); HEMOGLOBIN 7.1 g/dl (12.0-15.5); LYMPH # 0.9 10^3/uL (1.5-5.0); LYMPH % 46.5 % (24.0-44.0); MEAN CORPUSCULAR HEMOGLOBIN 33.6 pg (27.0-33.0); MEAN CORPUSCULAR HGB CONC 33.3 g/dl (32.0-36.5); MEAN CORPUSCULAR VOLUME 100.9 fl (80.0-96.0); MONO # 0.2 10^3/uL (0.0-0.8); MONO % 8.6 % (2.0-8.0); NEUTROPHILS % 42.2 % (36.0-66.0); PLATELET COUNT, AUTOMATED 148 10^3/uL (150-450); RED BLOOD COUNT 2.11 10^6/uL (4.00-5.40); WHITE BLOOD COUNT 1.9 10^3/uL (4.0-10.0)
[2023-09-20 16:46] LABS: INR 1.65; PROTHROMBIN TIME 18.9 SECONDS (12.5-14.5)
[2023-09-20 16:47] LABS: PARTIAL THROMBOPLASTIN TIME 34.5 SECONDS (24.8-34.2)
[2023-09-20 16:54] LABS: CK-MB VALUE MASS < 1.0 NG/ML (<3.6)
[2023-09-20 16:55] LABS: LIPASE 16 U/L (12-53)
[2023-09-20 16:56] LABS: AMYLASE 40 U/L (30-118); CPK CREATINE PHOSPHOKINASE < 15 U/L (34-145)
[2023-09-20 16:57] LABS: ALBUMIN 2.3 G/DL (3.2-5.2); ALKALINE PHOSPHATASE 111 U/L (46-116); ALT/SGPT 27 U/L (7.0-40); AST/SGOT 41 U/L (<34); BILIRUBIN,DIRECT 0.3 MG/DL (<0.4); BILIRUBIN,TOTAL 0.5 MG/DL (0.3-1.2); BLOOD UREA NITROGEN 18 MG/DL (9-23); CALCIUM LEVEL 7.4 MG/DL (8.3-10.6); CARBON DIOXIDE LEVEL 26 MMOL/L (20-31); CHLORIDE LEVEL 101 MMOL/L (98-107); CREATININE FOR GFR 0.45 MG/DL (0.55-1.30); GLOMERULAR FILTRATION RATE > 60.0 (>45); GLUCOSE, FASTING 91 MG/DL (74-106); IRON (FE) 63 UG/DL (50-170); PERCENT SATURATION 52.9 % (13.2-45.0); POTASSIUM SERUM 4.3 MMOL/L (3.5-5.1); SODIUM LEVEL 133 MMOL/L (136-145); TOTAL IRON BINDING CAPACITY 119 UG/DL (250-425); TOTAL PROTEIN 4.3 G/DL (5.7-8.2)
[2023-09-20 16:59] LABS: VITAMIN B12 LEVEL 1780 PG/ML (211-911)
[2023-09-20 17:10] LABS: NEUTROPHILS # 0.8 10^3/uL (1.5-8.5)
[2023-09-20 17:17] LABS: FERRITIN 1693.3 NG/ML (7.3-270.7)
[2023-09-20] MEDS ORDERED: MED REC COMMENT (18:26)
[2023-09-20] MEDS ORDERED: OMEP-173 PO (18:26)
[2023-09-20] MEDS ORDERED: VITATAB73 PO (18:26)
[2023-09-20] MEDS ORDERED: MAGN400T33 PO (18:26)
[2023-09-20] MEDS ORDERED: HOME MED LIST COMPLETE! XX SCH (18:30)
[2023-09-20 20:10] LABS: PROCALCITONIN 0.18 ng/ml
[2023-09-27] MEDS ORDERED: MAGN400T2 PO (22:49)
[2023-09-27] MEDS ORDERED: ALBU8.5H INH (22:49)
[2023-09-27] MEDS ORDERED: BIMA01SOL OU (22:49)
== END 2023-09-20 22:00 | disposition home or self-care (01) ==
LOC: M ED 15:32 → EDBD 15:32 → M ED 22:00
DX: D46.9 Myelodysplastic syndrome, unspecified (principal); D64.9 Anemia, unspecified; Z98.84 Bariatric surgery status; Z88.0 Allergy status to penicillin; Z88.2 Allergy status to sulfonamides; Z79.810 Long term (current) use of selective estrogen receptor modulators (SERMs); Z79.83 Long term (current) use of bisphosphonates; Z79.52 Long term (current) use of systemic steroids; Z79.899 Other long term (current) drug therapy
CPT/HCPCS: 36430; 71045; 80048; 80076; 82150; 82550; 82553; 82607; 82728; 83550; 83605; 83690; 84145; 84484; 85025; 85610; 85730; 86850; 86900; 86901; 86920; 87040; 87486; 87581; 87633; 87798; 93005; 93041; 96360; 96361; 99285; P9016

== ENCOUNTER → 2023-09-27 | Outpatient (REF) | payer MEDICARE, OTHER ==
[~2023-09-27] MED LIST changes: +BIMA01SOL OU; +MAGN400T33 PO; +MED REC COMMENT; +OMEP-173 PO; +VITATAB73 PO
[2023-09-27 17:23] LABS: BASO % 0.9 % (0.0-1.0); LYMPH # 1.3 10^3/uL (1.5-5.0); LYMPH % 41.6 % (24.0-44.0); MEAN CORPUSCULAR HEMOGLOBIN 33.2 pg (27.0-33.0); MEAN CORPUSCULAR HGB CONC 33.8 g/dl (32.0-36.5); MEAN CORPUSCULAR VOLUME 98.1 fl (80.0-96.0); MONO # 0.2 10^3/uL (0.0-0.8); MONO % 4.7 % (2.0-8.0); NEUTROPHILS # 1.7 10^3/uL (1.5-8.5); NEUTROPHILS % 52.5 % (36.0-66.0); PLATELET COUNT, AUTOMATED 162 10^3/uL (150-450); RED BLOOD COUNT 2.08 10^6/uL (4.00-5.40); WHITE BLOOD COUNT 3.2 10^3/uL (4.0-10.0)
[2023-09-27 19:57] LABS: HEMATOCRIT 20.4 % (36.0-47.0); HEMOGLOBIN 6.9 g/dl (12.0-15.5)
[2023-09-28 16:25] VITALS: BP 118/61; TEMP 97.9; O2SAT 100
== END ==
LOC: M SHH 16:52
PROVIDERS: ATTEND Internal Medicine Medical Oncology
DX: D46.9 Myelodysplastic syndrome, unspecified (principal)

== ENCOUNTER → 2023-10-19 | Outpatient (CLI) | payer MEDICARE, OTHER ==
[~2023-10-19] MED LIST changes: +MIDO5TA PO
== END ==
LOC: M PAL 09:45
PROVIDERS: ATTEND Nurse Practitioner Adult Health
DX: D46.9 Myelodysplastic syndrome, unspecified (principal); I27.20 Pulmonary hypertension, unspecified; I42.1 Obstructive hypertrophic cardiomyopathy; R53.1 Weakness; R53.83 Other fatigue; I95.89 Other hypotension; G89.29 Other chronic pain; Z51.5 Encounter for palliative care; Z79.891 Long term (current) use of opiate analgesic; Z79.899 Other long term (current) drug therapy; Z80.0 Family history of malignant neoplasm of digestive organs; Z88.0 Allergy status to penicillin; Z88.1 Allergy status to other antibiotic agents; Z88.2 Allergy status to sulfonamides; Z98.84 Bariatric surgery status; Z99.3 Dependence on wheelchair

== ENCOUNTER → 2023-10-25 | Outpatient (REF) | payer MEDICARE, OTHER ==
[2023-10-25 12:25] LABS: BASO % 0.3 % (0.0-1.0); HEMATOCRIT 21.3 % (36.0-47.0); HEMOGLOBIN 7.2 g/dl (12.0-15.5); LYMPH # 1.4 10^3/uL (1.5-5.0); LYMPH % 39.3 % (24.0-44.0); MEAN CORPUSCULAR HEMOGLOBIN 31.6 pg (27.0-33.0); MEAN CORPUSCULAR HGB CONC 33.8 g/dl (32.0-36.5); MEAN CORPUSCULAR VOLUME 93.4 fl (80.0-96.0); MONO # 0.2 10^3/uL (0.0-0.8); MONO % 5.2 % (2.0-8.0); NEUTROPHILS # 1.9 10^3/uL (1.5-8.5); NEUTROPHILS % 54.9 % (36.0-66.0); PLATELET COUNT, AUTOMATED 164 10^3/uL (150-450); RED BLOOD COUNT 2.28 10^6/uL (4.00-5.40); WHITE BLOOD COUNT 3.5 10^3/uL (4.0-10.0)
== END ==
LOC: M SHH 11:49
PROVIDERS: ATTEND Internal Medicine Medical Oncology
DX: Z79.899 Other long term (current) drug therapy (principal); Z79.891 Long term (current) use of opiate analgesic; D46.9 Myelodysplastic syndrome, unspecified; I42.1 Obstructive hypertrophic cardiomyopathy; C92.00 Acute myeloblastic leukemia, not having achieved remission

== ENCOUNTER → 2023-11-01 | Outpatient (REF) | payer MEDICARE, OTHER ==
[2023-11-01 14:02] LABS: BASO % 0.7 % (0.0-1.0); HEMATOCRIT 23.7 % (36.0-47.0); HEMOGLOBIN 7.9 g/dl (12.0-15.5); LYMPH # 1.3 10^3/uL (1.5-5.0); LYMPH % 30.9 % (24.0-44.0); MEAN CORPUSCULAR HGB CONC 33.3 g/dl (32.0-36.5); MONO # 0.3 10^3/uL (0.0-0.8); MONO % 6.9 % (2.0-8.0); NEUTROPHILS # 2.6 10^3/uL (1.5-8.5); NEUTROPHILS % 60.5 % (36.0-66.0); PLATELET COUNT, AUTOMATED 197 10^3/uL (150-450); RED BLOOD COUNT 2.47 10^6/uL (4.00-5.40); WHITE BLOOD COUNT 4.2 10^3/uL (4.0-10.0)
== END ==
LOC: M SHH 13:30
PROVIDERS: ATTEND Internal Medicine Medical Oncology
DX: Z79.899 Other long term (current) drug therapy (principal); Z79.891 Long term (current) use of opiate analgesic; D46.9 Myelodysplastic syndrome, unspecified; I42.1 Obstructive hypertrophic cardiomyopathy; C92.00 Acute myeloblastic leukemia, not having achieved remission

== ENCOUNTER → 2023-11-08 | Outpatient (REF) | payer MEDICARE, OTHER ==
[2023-11-08 18:10] LABS: BASO % 0.5 % (0.0-1.0); LYMPH # 0.6 10^3/uL (1.5-5.0); LYMPH % 28.8 % (24.0-44.0); MEAN CORPUSCULAR HGB CONC 33.1 g/dl (32.0-36.5); MEAN CORPUSCULAR VOLUME 96.6 fl (80.0-96.0); MONO # 0.1 10^3/uL (0.0-0.8); MONO % 4.7 % (2.0-8.0); NEUTROPHILS # 1.4 10^3/uL (1.5-8.5); NEUTROPHILS % 65.5 % (36.0-66.0); PLATELET COUNT, AUTOMATED 114 10^3/uL (150-450); RED BLOOD COUNT 1.47 10^6/uL (4.00-5.40); WHITE BLOOD COUNT 2.2 10^3/uL (4.0-10.0)
[2023-11-08 19:25] LABS: HEMATOCRIT 14.2 % (36.0-47.0); HEMOGLOBIN 4.7 g/dl (12.0-15.5)
== END ==
LOC: M SHH 17:24
PROVIDERS: ATTEND Internal Medicine Medical Oncology
DX: Z79.899 Other long term (current) drug therapy (principal)

== ENCOUNTER → 2023-11-22 | Outpatient (REF) | payer MEDICARE, OTHER ==
[2023-11-22 19:35] LABS: BASO % 0.4 % (0.0-1.0); HEMOGLOBIN 7.1 g/dl (12.0-15.5); LYMPH # 0.8 10^3/uL (1.5-5.0); LYMPH % 28.7 % (24.0-44.0); MEAN CORPUSCULAR HEMOGLOBIN 29.8 pg (27.0-33.0); MEAN CORPUSCULAR HGB CONC 32.3 g/dl (32.0-36.5); MEAN CORPUSCULAR VOLUME 92.4 fl (80.0-96.0); MONO # 0.2 10^3/uL (0.0-0.8); NEUTROPHILS # 1.8 10^3/uL (1.5-8.5); NEUTROPHILS % 64.5 % (36.0-66.0); PLATELET COUNT, AUTOMATED 166 10^3/uL (150-450); RED BLOOD COUNT 2.38 10^6/uL (4.00-5.40); WHITE BLOOD COUNT 2.8 10^3/uL (4.0-10.0)
== END ==
LOC: M SHH 17:37
PROVIDERS: ATTEND Nurse Practitioner
DX: Z79.899 Other long term (current) drug therapy (principal)

== ENCOUNTER → 2023-11-29 | Outpatient (REF) | payer MEDICARE, OTHER ==
[2023-11-29 15:01] LABS: HEMATOCRIT 22.1 % (36.0-47.0); HEMOGLOBIN 7.2 g/dl (12.0-15.5); MEAN CORPUSCULAR HEMOGLOBIN 30.1 pg (27.0-33.0); MEAN CORPUSCULAR HGB CONC 32.6 g/dl (32.0-36.5); MEAN CORPUSCULAR VOLUME 92.5 fl (80.0-96.0); PLATELET COUNT, AUTOMATED 119 10^3/uL (150-450); RED BLOOD COUNT 2.39 10^6/uL (4.00-5.40); WHITE BLOOD COUNT 2.6 10^3/uL (4.0-10.0)
== END ==
LOC: M SHH 13:42
PROVIDERS: ATTEND Internal Medicine Medical Oncology
DX: D46.9 Myelodysplastic syndrome, unspecified (principal)